=== PATIENT | female | born 1950 | race Asian ===

== ENCOUNTER → 2016-05-08 | Outpatient (CLI) | payer MEDICARE, OTHER ==
[~2016-05-08] MED LIST: ACAR50TA11 PO; ALBU8HFA IH; ALPR0.5T8 PO; AMIO200T44 PO; ASPI81TA2 PO; BUDE10.2 IH; CALC-26 PO; DICY10 PO; ESOM20CA31 PO; HYDR-3965 PO; LINA290C PO; METO50TA9 PO; PRAV20TA4 PO; SERT100T12 PO; SITA1TBM4 PO; TIOT185 IH
[2016-05-08 11:22] LABS: BASOPHILS % (AUTO) 0.3 % (0.0-2.0); HEMATOCRIT 44.6 % (36-46); HEMOGLOBIN 14.4 g/dL (12.0-16.0); LYMPHOCYTES # (AUTO) 1.8 K/uL (1.0-4.8); LYMPHOCYTES % (AUTO) 18.7 % (22.0-44.0); MEAN CORPUSCULAR HEMOGLOBIN 29.5 pg (26.0-34.0); MEAN CORPUSCULAR HGB CONC 32.2 G/dL (31.0-37.0); MEAN CORPUSCULAR VOLUME 91 fL (80-100); MONOCYTES # (AUTO) 0.7 K/uL (0.1-1.0); MONOCYTES % (AUTO) 7.7 % (2.0-9.0); NEUTROPHILS # (AUTO) 6.8 K/uL (1.8-7.7); NEUTROPHILS % (AUTO) 72.3 % (40.0-70.0); PLATELET COUNT (AUTO) 235 K/uL (150-450); RED BLOOD CELL COUNT(AUTO) 4.88 MIL/uL (4.00-5.20); RED CELL DISTRIBUTION WIDTH 13.8 % (11.5-14.5); WHITE BLOOD COUNT (AUTO) 9.4 K/uL (4.5-11.0)
[2016-05-08 11:52] LABS: ALANINE AMINOTRANSFERASE 28 U/L (12-78); ALBUMIN 4.2 g/dL (3.4-5.0); ANION GAP 8 mmol/L (8-16); ASPARTATE AMINOTRANSFERASE 21 U/L (15-37); BILIRUBIN,TOTAL 0.4 mg/dL (0.1-1.0); CALCIUM, TOTAL 9.8 mg/dL (8.8-10.5); CARBON DIOXIDE 29 mmol/L (22-29); CHLORIDE 100 mmol/L (98-107); CREATININE 0.64 mg/dL (0.60-1.30); GLOMERULAR FILTR. RATE CALC > 60 mL/min (>60); POTASSIUM 4.8 mmol/L (3.5-5.1); SODIUM SERUM 137 mmol/L (136-145); THYROID STIMULATING HORMONE 0.69 uIU/mL (0.36-3.74); TOTAL PROTEIN, SERUM 7.3 g/dL (6.4-8.2); UREA NITROGEN, BLOOD 9 mg/dL (7-18)
== END | disposition home or self-care (01) ==
LOC: LABPV 07:15
PROVIDERS: ATTEND Internal Medicine Cardiovascular Disease
DX: I11.0 Hypertensive heart disease with heart failure (principal); I50.9 Heart failure, unspecified; E11.8 Type 2 diabetes mellitus with unspecified complications; E55.9 Vitamin D deficiency, unspecified
CPT/HCPCS: 82306; 83036; 84439; 84443

== ENCOUNTER → 2016-07-18 | Outpatient (CLI) | payer MEDICARE, OTHER ==
[2016-07-18 10:28] LABS: BASOPHILS # (AUTO) 0.04 K/uL (0.00-0.20); BASOPHILS % (AUTO) 0.4 % (0.0-2.0); EOSINOPHILS % (AUTO) 0.96 % (1.0-6.0); HEMATOCRIT 43.5 % (36-46); HEMOGLOBIN 14.2 g/dL (12.0-16.0); LYMPHOCYTES # (AUTO) 1.8 K/uL (1.0-4.8); LYMPHOCYTES % (AUTO) 17.2 % (22.0-44.0); MEAN CORPUSCULAR HEMOGLOBIN 29.6 pg (26.0-34.0); MEAN CORPUSCULAR HGB CONC 32.5 G/dL (31.0-37.0); MEAN CORPUSCULAR VOLUME 91 fL (80-100); MONOCYTES # (AUTO) 0.7 K/uL (0.1-1.0); NEUTROPHILS # (AUTO) 7.8 K/uL (1.8-7.7); NEUTROPHILS % (AUTO) 74.5 % (40.0-70.0); PLATELET COUNT (AUTO) 257 K/uL (150-450); RED BLOOD CELL COUNT(AUTO) 4.78 MIL/uL (4.00-5.20); RED CELL DISTRIBUTION WIDTH 13.7 % (11.5-14.5); WHITE BLOOD COUNT (AUTO) 10.5 K/uL (4.5-11.0)
[2016-07-18 10:38] LABS: HEMOGLOBIN A1C 6.5 % (4.5-6.2)
[2016-07-18 10:54] LABS: ALANINE AMINOTRANSFERASE 22 U/L (12-78); ALBUMIN 3.9 g/dL (3.4-5.0); ANION GAP 7 mmol/L (8-16); ASPARTATE AMINOTRANSFERASE 14 U/L (15-37); BILIRUBIN,TOTAL 0.4 mg/dL (0.1-1.0); CALCIUM, TOTAL 9.8 mg/dL (8.8-10.5); CARBON DIOXIDE 31 mmol/L (22-29); CHLORIDE 99 mmol/L (98-107); CHOL/HDL RATIO 2.2 (3.9-5.7); CREATININE 0.64 mg/dL (0.60-1.30); GLOMERULAR FILTR. RATE CALC > 60 mL/min (>60); POTASSIUM 5.1 mmol/L (3.5-5.1); SODIUM SERUM 137 mmol/L (136-145); THYROID STIMULATING HORMONE 1.12 uIU/mL (0.36-3.74); TOTAL PROTEIN, SERUM 7.2 g/dL (6.4-8.2); UREA NITROGEN, BLOOD 13 mg/dL (7-18)
== END | disposition home or self-care (01) ==
LOC: LABPV 09:04
PROVIDERS: ATTEND Internal Medicine Cardiovascular Disease
DX: I11.0 Hypertensive heart disease with heart failure (principal); I50.9 Heart failure, unspecified; E11.8 Type 2 diabetes mellitus with unspecified complications; E55.9 Vitamin D deficiency, unspecified
CPT/HCPCS: 82306; 83036; 83735; 84443

== ENCOUNTER 2017-01-08 06:20 | Day surgery (SDC) | payer MEDICARE, OTHER ==
[~2017-01-08] VITALS: Ht 162.6 cm; Wt 50.0 kg
[~2017-01-08 06:20] MED LIST changes: -ALBU8HFA IH; -AMIO200T44 PO; +APIX2.5T PO; -ASPI81TA2 PO; -CALC-26 PO; +DICLOFENAC SODIUM 0.1% 2.5 ML OPHTHALMIC SOLUTION OS ONE; +ESCI10TA PO; -ESOM20CA31 PO; -HYDR-3965 PO; +LEVAHFA IH; +LEVO50 PO; +MOXIFLOXACIN HCL 0.5% 3 ML OPHTHALMIC SOLUTION OD ONE; +RABE20TA60 PO; +RINGERS SOLUTION,LACTATED 500 ML IV ONE; +ROFL500T PO; -SERT100T12 PO; -TIOT185 IH; +UMEC62.5 PO
[2017-01-08] MEDS ORDERED: MIDAZOLAM HCL 2 MG/2 ML VIAL IVP ONE (06:21)
[2017-01-08] MEDS ORDERED: LIDOCAINE HCL/PF 1% 2 ML VIAL IM ONE (06:21)
[2017-01-08] MEDS ORDERED: POVIDONE-IODINE 10% 15 ML SOLUTION UD TP ONE (06:21)
[2017-01-08] MEDS ORDERED: TETRACAINE HCL VISCOUS 0.5% 5 ML OPHTHALMIC SOLUTION OU ONE (06:21)
[2017-01-08] MEDS ORDERED: HYALURONATE SODIUM 12 MG/ML 0.8 ML SYRINGE IO ONE (06:21)
[2017-01-08] MEDS ORDERED: HYALURONATE SOD/CHONDROITIN SOD 0.5 ML VIAL IO ONE (06:21)
[2017-01-08] MEDS ORDERED: FentaNYL CITRATE-PF 100 MCG/2 ML VIAL IVP ONE (06:21)
[2017-01-08] MEDS ORDERED: DEXAMETHASONE SOD PHOS 4 MG/ML VIAL IVP ONE (06:21)
[2017-01-08] MEDS ORDERED: RINGERS SOLUTION,LACTATED 500 ML IV ONE (06:27)
[2017-01-08] MEDS ORDERED: DICLOFENAC SODIUM 0.1% 2.5 ML OPHTHALMIC SOLUTION ONE (06:28)
[2017-01-08] MEDS ORDERED: TROPICAMIDE 1% 2 ML OPHTHALMIC SOLUTION ONE (06:28)
[2017-01-08] MEDS ORDERED: MOXIFLOXACIN HCL 0.5% 3 ML OPHTHALMIC SOLUTION ONE (06:28)
[2017-01-08] MEDS ORDERED: PHENYLEPHRINE HCL 2.5% 2 ML OPHTHALMIC SOLUTION ONE (06:28)
[2017-01-08] MEDS ORDERED: DICLOFENAC SODIUM 0.1% 2.5 ML OPHTHALMIC SOLUTION OD ONE (06:30)
[2017-01-08] MEDS: TROPICAMIDE 1% 2 ML OPHTHALMIC SOLUTION OD SCH ×2 (07:08→07:13)
[2017-01-08] MEDS: PHENYLEPHRINE HCL 2.5% 2 ML OPHTHALMIC SOLUTION OD SCH ×2 (07:08→07:13)
[2017-01-08 07:12] LABS: GLUCOSE,POINT OF CARE 99 MG/DL (70-110)
== END 2017-01-08 09:20 | disposition home or self-care (01) ==
LOC: SURGERY 06:20
PROVIDERS: ATTEND Specialist
DX: E11.36 Type 2 diabetes mellitus with diabetic cataract (principal); H25.011 Cortical age-related cataract, right eye; I25.10 Atherosclerotic heart disease of native coronary artery without angina pectoris; J44.9 Chronic obstructive pulmonary disease, unspecified; M19.90 Unspecified osteoarthritis, unspecified site; F17.200 Nicotine dependence, unspecified, uncomplicated; F32.9 Major depressive disorder, single episode, unspecified; Z98.890 Other specified postprocedural states; Z79.899 Other long term (current) drug therapy; Z79.01 Long term (current) use of anticoagulants; Z95.1 Presence of aortocoronary bypass graft; Z98.42 Cataract extraction status, left eye
CPT/HCPCS: 82962; 93005; J1100; J2250; J3010; J3490; J7120

== ENCOUNTER → 2017-01-14 | Outpatient (CLI) | payer MEDICARE, OTHER ==
[~2017-01-14] MED LIST changes: -DICLOFENAC SODIUM 0.1% 2.5 ML OPHTHALMIC SOLUTION OS ONE; -MOXIFLOXACIN HCL 0.5% 3 ML OPHTHALMIC SOLUTION OD ONE; -RINGERS SOLUTION,LACTATED 500 ML IV ONE
[2017-01-14 11:58] LABS: BASOPHILS # (AUTO) 0.04 K/uL (0.00-0.20); BASOPHILS % (AUTO) 0.5 % (0.0-2.0); EOSINOPHILS # (AUTO) 0.08 K/uL (0.00-0.70); HEMATOCRIT 46.1 % (36-46); LYMPHOCYTES % (AUTO) 11.2 % (22.0-44.0); MEAN CORPUSCULAR HEMOGLOBIN 29.3 pg (26.0-34.0); MEAN CORPUSCULAR HGB CONC 32.5 G/dL (31.0-37.0); MEAN CORPUSCULAR VOLUME 90 fL (80-100); MONOCYTES # (AUTO) 0.5 K/uL (0.1-1.0); MONOCYTES % (AUTO) 5.1 % (2.0-9.0); NEUTROPHILS # (AUTO) 7.4 K/uL (1.8-7.7); NEUTROPHILS % (AUTO) 82.4 % (40.0-70.0); PLATELET COUNT (AUTO) 239 K/uL (150-450); RED BLOOD CELL COUNT(AUTO) 5.11 MIL/uL (4.00-5.20); RED CELL DISTRIBUTION WIDTH 14.1 % (11.5-14.5)
[2017-01-14 12:24] LABS: B-TYPE NATRIURETIC PEPTIDE 143 pg/mL (0-100); HEMOGLOBIN A1C 6.4 % (4.5-6.2)
[2017-01-14 12:33] LABS: ALANINE AMINOTRANSFERASE 25 U/L (12-78); ALBUMIN 4.1 g/dL (3.4-5.0); ALKALINE PHOSPHATASE 67 U/L (46-116); ANION GAP 7 mmol/L (8-16); ASPARTATE AMINOTRANSFERASE 19 U/L (15-37); BILIRUBIN,TOTAL 0.3 mg/dL (0.1-1.0); CALCIUM, TOTAL 9.7 mg/dL (8.8-10.5); CARBON DIOXIDE 32 mmol/L (22-29); CHLORIDE 97 mmol/L (98-107); CHOL/HDL RATIO 2.3 (3.9-5.7); CHOLESTEROL 180 mg/dL (131-200); CREATININE 0.67 mg/dL (0.60-1.30); FREE T4 (FREE THYROXINE) 1.24 ng/dL (0.76-1.46); GLOMERULAR FILTR. RATE CALC > 60 mL/min (>60); GLUCOSE,RANDOM 111 mg/dL (70-110); HDL CHOLESTEROL 79 mg/dL (40-60); LDL CHOL (CALC.) 94 mg/dL (0-130); POTASSIUM 4.2 mmol/L (3.5-5.1); SODIUM SERUM 136 mmol/L (136-145); THYROID STIMULATING HORMONE 1.39 uIU/mL (0.36-3.74); TOTAL PROTEIN, SERUM 7.3 g/dL (6.4-8.2); TRIGLYCERIDES 37 mg/dL (15-150); UREA NITROGEN, BLOOD 11 mg/dL (7-18)
== END | disposition home or self-care (01) ==
LOC: LABPV 10:39
PROVIDERS: ATTEND Internal Medicine Cardiovascular Disease
DX: I11.0 Hypertensive heart disease with heart failure (principal); I50.9 Heart failure, unspecified; E11.65 Type 2 diabetes mellitus with hyperglycemia; E55.9 Vitamin D deficiency, unspecified
CPT/HCPCS: 82306; 83036; 83735; 84439; 84443

== ENCOUNTER → 2017-02-11 | Outpatient (CLI) | payer MEDICARE, OTHER ==
[2017-02-11 09:46] LABS: BASOPHILS % (AUTO) 0.5 % (0.0-2.0); EOSINOPHILS % (AUTO) 1.8 % (1.0-6.0); HEMATOCRIT 47.4 % (36-46); LYMPHOCYTES # (AUTO) 1.5 K/uL (1.0-4.8); LYMPHOCYTES % (AUTO) 17.7 % (22.0-44.0); MEAN CORPUSCULAR HEMOGLOBIN 30.4 pg (26.0-34.0); MEAN CORPUSCULAR HGB CONC 33.9 G/dL (31.0-37.0); MEAN CORPUSCULAR VOLUME 90 fL (80-100); MONOCYTES # (AUTO) 0.5 K/uL (0.1-1.0); MONOCYTES % (AUTO) 6.7 % (2.0-9.0); NEUTROPHILS % (AUTO) 73.3 % (40.0-70.0); PLATELET COUNT (AUTO) 217 K/uL (150-450); RED BLOOD CELL COUNT(AUTO) 5.29 MIL/uL (4.00-5.20); RED CELL DISTRIBUTION WIDTH 14.5 % (11.5-14.5); WHITE BLOOD COUNT (AUTO) 8.2 K/uL (4.5-11.0)
[2017-02-11 10:12] LABS: ALANINE AMINOTRANSFERASE 24 U/L (12-78); ALBUMIN 4.3 g/dL (3.4-5.0); ANION GAP 5 mmol/L (8-16); ASPARTATE AMINOTRANSFERASE 18 U/L (15-37); BILIRUBIN,TOTAL 0.4 mg/dL (0.1-1.0); CALCIUM, TOTAL 10.1 mg/dL (8.8-10.5); CARBON DIOXIDE 32 mmol/L (22-29); CHLORIDE 97 mmol/L (98-107); CHOL/HDL RATIO 2.1 (3.9-5.7); CREATININE 0.74 mg/dL (0.60-1.30); GLOMERULAR FILTR. RATE CALC > 60 mL/min (>60); POTASSIUM 5.3 mmol/L (3.5-5.1); SODIUM SERUM 134 mmol/L (136-145); TOTAL PROTEIN, SERUM 7.8 g/dL (6.4-8.2); UREA NITROGEN, BLOOD 12 mg/dL (7-18)
== END | disposition home or self-care (01) ==
LOC: LABPV 08:00
PROVIDERS: ATTEND Internal Medicine Cardiovascular Disease
DX: I11.0 Hypertensive heart disease with heart failure (principal); I50.9 Heart failure, unspecified; E11.65 Type 2 diabetes mellitus with hyperglycemia; E55.9 Vitamin D deficiency, unspecified
CPT/HCPCS: 82306; 83036; 83735; 84439; 84443

== ENCOUNTER → 2017-05-08 | Outpatient (CLI) | payer MEDICARE, OTHER ==
[2017-05-08 10:32] LABS: BASOPHILS % (AUTO) 0.7 % (0.0-2.0); EOSINOPHILS % (AUTO) 0.7 % (1.0-6.0); HEMATOCRIT 44.2 % (36-46); HEMOGLOBIN 14.8 g/dL (12.0-16.0); LYMPHOCYTES # (AUTO) 1.3 K/uL (1.0-4.8); LYMPHOCYTES % (AUTO) 15.3 % (22.0-44.0); MEAN CORPUSCULAR HEMOGLOBIN 30.3 pg (26.0-34.0); MEAN CORPUSCULAR HGB CONC 33.5 G/dL (31.0-37.0); MEAN CORPUSCULAR VOLUME 90 fL (80-100); MONOCYTES # (AUTO) 0.6 K/uL (0.1-1.0); MONOCYTES % (AUTO) 7.6 % (2.0-9.0); NEUTROPHILS # (AUTO) 6.4 K/uL (1.8-7.7); NEUTROPHILS % (AUTO) 75.7 % (40.0-70.0); PLATELET COUNT (AUTO) 251 K/uL (150-450); RED BLOOD CELL COUNT(AUTO) 4.89 MIL/uL (4.00-5.20); RED CELL DISTRIBUTION WIDTH 14.1 % (11.5-14.5)
[2017-05-08 10:35] LABS: HEMOGLOBIN A1C 6.2 % (4.5-6.2)
[2017-05-08 10:57] LABS: ALANINE AMINOTRANSFERASE 25 U/L (12-78); ALBUMIN 3.8 g/dL (3.4-5.0); ALKALINE PHOSPHATASE 51 U/L (46-116); ANION GAP 7 mmol/L (8-16); ASPARTATE AMINOTRANSFERASE 25 U/L (15-37); BILIRUBIN,TOTAL 0.4 mg/dL (0.1-1.0); CALCIUM, TOTAL 9.6 mg/dL (8.8-10.5); CARBON DIOXIDE 32 mmol/L (22-29); CHLORIDE 97 mmol/L (98-107); CHOL/HDL RATIO 2.2 (3.9-5.7); CHOLESTEROL 171 mg/dL (131-200); CREATININE 0.56 mg/dL (0.60-1.30); FREE T4 (FREE THYROXINE) 1.05 ng/dL (0.76-1.46); GLOMERULAR FILTR. RATE CALC > 60 mL/min (>60); GLUCOSE,RANDOM 94 mg/dL (70-110); HDL CHOLESTEROL 77 mg/dL (40-60); LDL CHOL (CALC.) 84 mg/dL (0-130); SODIUM SERUM 136 mmol/L (136-145); THYROID STIMULATING HORMONE 3.47 uIU/mL (0.36-3.74); TOTAL PROTEIN, SERUM 7.1 g/dL (6.4-8.2); TRIGLYCERIDES 51 mg/dL (15-150); UREA NITROGEN, BLOOD 13 mg/dL (7-18)
[2017-05-08 11:26] LABS: B-TYPE NATRIURETIC PEPTIDE 62 pg/mL (0-100)
== END | disposition home or self-care (01) ==
LOC: LABPV 07:47
PROVIDERS: ATTEND Internal Medicine Cardiovascular Disease
DX: I11.0 Hypertensive heart disease with heart failure (principal); I50.9 Heart failure, unspecified; E11.8 Type 2 diabetes mellitus with unspecified complications; E55.9 Vitamin D deficiency, unspecified; D56.5 Hemoglobin E-beta thalassemia
CPT/HCPCS: 82306; 83036; 83735; 84439; 84443

== ENCOUNTER → 2017-09-22 | Outpatient (CLI) | payer MEDICARE, OTHER ==
[2017-09-22 10:29] LABS: BASOPHILS % (AUTO) 0.9 % (0.0-2.0); EOSINOPHILS % (AUTO) 1.8 % (1.0-6.0); HEMATOCRIT 45.2 % (36-46); HEMOGLOBIN 15.5 g/dL (12.0-16.0); LYMPHOCYTES # (AUTO) 1.6 K/uL (1.0-4.8); LYMPHOCYTES % (AUTO) 21.8 % (22.0-44.0); MEAN CORPUSCULAR HEMOGLOBIN 30.3 pg (26.0-34.0); MEAN CORPUSCULAR HGB CONC 34.3 G/dL (31.0-37.0); MEAN CORPUSCULAR VOLUME 89 fL (80-100); MONOCYTES # (AUTO) 0.6 K/uL (0.1-1.0); NEUTROPHILS # (AUTO) 4.8 K/uL (1.8-7.7); NEUTROPHILS % (AUTO) 66.5 % (40.0-70.0); PLATELET COUNT (AUTO) 206 K/uL (150-450); RED BLOOD CELL COUNT(AUTO) 5.11 MIL/uL (4.00-5.20); RED CELL DISTRIBUTION WIDTH 13.8 % (11.5-14.5)
[2017-09-22 10:44] LABS: HEMOGLOBIN A1C 6.2 % (4.5-6.2)
[2017-09-22 10:48] LABS: B-TYPE NATRIURETIC PEPTIDE 196 pg/mL (0-100)
[2017-09-22 11:53] LABS: ALANINE AMINOTRANSFERASE 29 U/L (12-78); ALKALINE PHOSPHATASE 59 U/L (46-116); ANION GAP 6 mmol/L (8-16); ASPARTATE AMINOTRANSFERASE 24 U/L (15-37); BILIRUBIN,TOTAL 0.5 mg/dL (0.1-1.0); CALCIUM, TOTAL 9.2 mg/dL (8.8-10.5); CARBON DIOXIDE 31 mmol/L (22-29); CHLORIDE 94 mmol/L (98-107); CHOL/HDL RATIO 2.3 (3.9-5.7); CHOLESTEROL 170 mg/dL (131-200); FREE T4 (FREE THYROXINE) 0.96 ng/dL (0.76-1.46); GLOMERULAR FILTR. RATE CALC > 60 mL/min (>60); GLUCOSE,RANDOM 111 mg/dL (70-110); HDL CHOLESTEROL 73 mg/dL (40-60); LDL CHOL (CALC.) 87 mg/dL (0-130); POTASSIUM 4.5 mmol/L (3.5-5.1); SODIUM SERUM 131 mmol/L (136-145); THYROID STIMULATING HORMONE 3.35 uIU/mL (0.36-3.74); TOTAL PROTEIN, SERUM 7.3 g/dL (6.4-8.2); TRIGLYCERIDES 49 mg/dL (15-150); UREA NITROGEN, BLOOD 11 mg/dL (7-18)
== END | disposition home or self-care (01) ==
LOC: LABPV 08:39
PROVIDERS: ATTEND Internal Medicine Cardiovascular Disease
DX: I11.0 Hypertensive heart disease with heart failure (principal); I50.9 Heart failure, unspecified; E11.8 Type 2 diabetes mellitus with unspecified complications; E55.9 Vitamin D deficiency, unspecified; D56.5 Hemoglobin E-beta thalassemia; E78.00 Pure hypercholesterolemia, unspecified; F41.9 Anxiety disorder, unspecified; I48.91 Unspecified atrial fibrillation; F32.9 Major depressive disorder, single episode, unspecified; J44.9 Chronic obstructive pulmonary disease, unspecified; K21.9 Gastro-esophageal reflux disease without esophagitis; E66.09 Other obesity due to excess calories
CPT/HCPCS: 82306; 83036; 83735; 84439; 84443

== ENCOUNTER → 2018-01-08 | Outpatient (CLI) | payer MEDICARE, OTHER ==
[~2018-01-08] MED LIST changes: +BACTDSB PO; -LEVO50 PO
[2018-01-08 10:58] LABS: BASOPHILS % (AUTO) 0.7 % (0.0-2.0); EOSINOPHILS % (AUTO) 1.3 % (1.0-6.0); HEMATOCRIT 44.3 % (36-46); LYMPHOCYTES # (AUTO) 1.5 K/uL (1.0-4.8); LYMPHOCYTES % (AUTO) 19.7 % (22.0-44.0); MEAN CORPUSCULAR HEMOGLOBIN 30.4 pg (26.0-34.0); MEAN CORPUSCULAR HGB CONC 33.8 G/dL (31.0-37.0); MEAN CORPUSCULAR VOLUME 90 fL (80-100); MONOCYTES # (AUTO) 0.8 K/uL (0.1-1.0); MONOCYTES % (AUTO) 10.3 % (2.0-9.0); NEUTROPHILS # (AUTO) 5.2 K/uL (1.8-7.7); PLATELET COUNT (AUTO) 210 K/uL (150-450); RED BLOOD CELL COUNT(AUTO) 4.93 MIL/uL (4.00-5.20); RED CELL DISTRIBUTION WIDTH 15.1 % (11.5-14.5)
[2018-01-08 11:18] LABS: ALANINE AMINOTRANSFERASE 26 U/L (12-78); ALBUMIN 3.5 g/dL (3.4-5.0); ALKALINE PHOSPHATASE 65 U/L (46-116); ANION GAP 0 mmol/L (8-16); ASPARTATE AMINOTRANSFERASE 17 U/L (15-37); BILIRUBIN,TOTAL 0.3 mg/dL (0.1-1.0); CALCIUM, TOTAL 9.1 mg/dL (8.8-10.5); CARBON DIOXIDE 37 mmol/L (22-29); CHLORIDE 96 mmol/L (98-107); CHOLESTEROL 159 mg/dL (131-200); CREATININE 0.65 mg/dL (0.60-1.30); FREE T4 (FREE THYROXINE) 1.07 ng/dL (0.76-1.46); GLOMERULAR FILTR. RATE CALC > 60 mL/min (>60); GLUCOSE,RANDOM 102 mg/dL (70-110); HDL CHOLESTEROL 78 mg/dL (40-60); LDL CHOL (CALC.) 73 mg/dL (0-130); POTASSIUM 3.7 mmol/L (3.5-5.1); SODIUM SERUM 133 mmol/L (136-145); THYROID STIMULATING HORMONE 4.21 uIU/mL (0.36-3.74); TOTAL PROTEIN, SERUM 6.5 g/dL (6.4-8.2); TRIGLYCERIDES 39 mg/dL (15-150); UREA NITROGEN, BLOOD 15 mg/dL (7-18)
[2018-01-08 11:26] LABS: B-TYPE NATRIURETIC PEPTIDE 101 pg/mL (0-100)
== END | disposition home or self-care (01) ==
LOC: LABPV 09:00
PROVIDERS: ATTEND Internal Medicine Cardiovascular Disease
DX: I11.0 Hypertensive heart disease with heart failure (principal); I50.9 Heart failure, unspecified; E11.8 Type 2 diabetes mellitus with unspecified complications; E55.9 Vitamin D deficiency, unspecified; D56.5 Hemoglobin E-beta thalassemia
CPT/HCPCS: 82306; 83036; 83735; 84439; 84443

== ENCOUNTER → 2018-05-01 | Outpatient (CLI) | payer MEDICARE, OTHER ==
[2018-05-01 12:04] LABS: BASOPHILS % (AUTO) 0.9 % (0.0-2.0); EOSINOPHILS % (AUTO) 0.7 % (1.0-6.0); HEMATOCRIT 43.2 % (36-46); HEMOGLOBIN 14.3 g/dL (12.0-16.0); LYMPHOCYTES % (AUTO) 13.4 % (22.0-44.0); MEAN CORPUSCULAR HEMOGLOBIN 28.7 pg (26.0-34.0); MEAN CORPUSCULAR HGB CONC 33.1 G/dL (31.0-37.0); MEAN CORPUSCULAR VOLUME 87 fL (80-100); MONOCYTES # (AUTO) 0.5 K/uL (0.1-1.0); MONOCYTES % (AUTO) 7.2 % (2.0-9.0); NEUTROPHILS # (AUTO) 5.7 K/uL (1.8-7.7); NEUTROPHILS % (AUTO) 77.8 % (40.0-70.0); PLATELET COUNT (AUTO) 215 K/uL (150-450); RED CELL DISTRIBUTION WIDTH 14.2 % (11.5-14.5)
[2018-05-01 12:27] LABS: B-TYPE NATRIURETIC PEPTIDE 337 pg/mL (0-100)
[2018-05-01 12:32] LABS: ALANINE AMINOTRANSFERASE 44 U/L (12-78); ALKALINE PHOSPHATASE 65 U/L (46-116); ANION GAP 5 mmol/L (8-16); ASPARTATE AMINOTRANSFERASE 36 U/L (15-37); BILIRUBIN,TOTAL 0.6 mg/dL (0.1-1.0); CALCIUM, TOTAL 9.9 mg/dL (8.8-10.5); CARBON DIOXIDE 32 mmol/L (22-29); CHLORIDE 99 mmol/L (98-107); CHOLESTEROL 159 mg/dL (131-200); FREE T4 (FREE THYROXINE) 1.21 ng/dL (0.76-1.46); GLOMERULAR FILTR. RATE CALC > 60 mL/min (>60); GLUCOSE,RANDOM 120 mg/dL (70-110); HDL CHOLESTEROL 81 mg/dL (40-60); LDL CHOL (CALC.) 70 mg/dL (0-130); POTASSIUM 4.7 mmol/L (3.5-5.1); SODIUM SERUM 136 mmol/L (136-145); THYROID STIMULATING HORMONE 3.69 uIU/mL (0.36-3.74); TOTAL PROTEIN, SERUM 7.4 g/dL (6.4-8.2); TRIGLYCERIDES 38 mg/dL (15-150); UREA NITROGEN, BLOOD 14 mg/dL (7-18)
[2018-05-01 12:40] LABS: HEMOGLOBIN A1C 6.1 % (4.5-6.2)
== END | disposition home or self-care (01) ==
LOC: LABPV 08:33
PROVIDERS: ATTEND Internal Medicine Cardiovascular Disease
DX: E55.9 Vitamin D deficiency, unspecified (principal); I11.0 Hypertensive heart disease with heart failure; I50.9 Heart failure, unspecified; E11.9 Type 2 diabetes mellitus without complications; D56.5 Hemoglobin E-beta thalassemia
CPT/HCPCS: 82306; 83036; 83735; 84439; 84443

== ENCOUNTER 2018-05-26 09:48 | Inpatient (IN) | payer MEDICARE, OTHER ==
[~2018-05-26] VITALS: Ht 162.6 cm; Wt 53.2 kg
[2018-05-26] MEDS ORDERED: ESOM20CA31 PO (09:56)
[2018-05-26 10:04] LABS: GLUCOSE,POINT OF CARE 193 MG/DL (70-110)
[2018-05-26] MEDS ORDERED: IPRATROPIUM BROMIDE 0.5 MG/2.5 ML NEB SOLUTION NEB ONE (10:45)
[2018-05-26] MEDS ORDERED: ALBUTEROL SULFATE 2.5 MG/0.5 ML NEB SOLUTION NEB ONE (10:45)
[2018-05-26 10:53] LABS: BASOPHILS % (AUTO) 0.1 % (0.0-2.0); EOSINOPHILS % (AUTO) 0 % (1.0-6.0); HEMOGLOBIN 12.2 g/dL (12.0-16.0); LYMPHOCYTES # (AUTO) 0.4 K/uL (1.0-4.8); LYMPHOCYTES % (AUTO) 3.1 % (22.0-44.0); MEAN CORPUSCULAR HEMOGLOBIN 27.1 pg (26.0-34.0); MEAN CORPUSCULAR HGB CONC 32.1 G/dL (31.0-37.0); MEAN CORPUSCULAR VOLUME 85 fL (80-100); MONOCYTES # (AUTO) 1.2 K/uL (0.1-1.0); MONOCYTES % (AUTO) 8.8 % (2.0-9.0); NEUTROPHILS # (AUTO) 11.9 K/uL (1.8-7.7); PLATELET COUNT (AUTO) 195 K/uL (150-450); RED BLOOD CELL COUNT(AUTO) 4.49 MIL/uL (4.00-5.20); RED CELL DISTRIBUTION WIDTH 14.9 % (11.5-14.5)
[2018-05-26 11:04] LABS: ANION GAP 6 mmol/L (8-16); CALCIUM, TOTAL 9.1 mg/dL (8.8-10.5); CARBON DIOXIDE 30 mmol/L (22-29); CHLORIDE 95 mmol/L (98-107); GLOMERULAR FILTR. RATE CALC > 60 mL/min (>60); GLUCOSE,RANDOM 146 mg/dL (70-110); INR 1.2 (0.9-1.1); POTASSIUM 4.5 mmol/L (3.5-5.1); PROTHROMBIN TIME 12.2 SEC (9.4-11.6); SODIUM SERUM 131 mmol/L (136-145); UREA NITROGEN, BLOOD 19 mg/dL (7-18)
[2018-05-26 11:13] LABS: B-TYPE NATRIURETIC PEPTIDE 747 pg/mL (0-100)
[2018-05-26 11:28] LABS: ALANINE AMINOTRANSFERASE 34 U/L (12-78); ALKALINE PHOSPHATASE 74 U/L (46-116); ASPARTATE AMINOTRANSFERASE 22 U/L (15-37); BILIRUBIN,TOTAL 0.9 mg/dL (0.1-1.0); CREATINE KINASE, TOTAL ONLY 83 U/L (26-192); TOTAL PROTEIN, SERUM 6.3 g/dL (6.4-8.2)
[2018-05-26] MEDS ORDERED: FUROSEMIDE 40 MG/4 ML VIAL IVP ONE (11:30)
[2018-05-26] MEDS ORDERED: MethylPREDNISolone SOD SUCC 125 MG/2 ML VIAL IVP ONE (11:30)
[2018-05-26 12:01] LABS: APPEARANCE,URINE CLEAR (CLEAR); BILIRUBIN,URINE NEGATIVE (NEGATIVE); GLUCOSE, URINE (UA) NEGATIVE (NEGATIVE); KETONES,URINE NEGATIVE (NEGATIVE); LEUKOCYTE ESTERASE ,URINE NEGATIVE (NEGATIVE); NITRATE,URINE NEGATIVE (NEGATIVE); OCCULT BLOOD,URINE NEGATIVE (NEGATIVE); PROTEIN,URINE SEE CONFIRM (NEGATIVE)
[2018-05-26 12:18] LABS: SULFOSALICYLIC ACID,URINE 1+ (Negative)
[2018-05-26 12:19] LABS: BACTERIA,URINE None Seen /HPF (None Seen); RBC,URINE None Seen /HPF (0-2); SQUAMOUS EPITHELIAL CELL,UR Moderate /LPF (None Seen); WBC,URINE None Seen /HPF (0-5)
[2018-05-26] MEDS ORDERED: ACETAMINOPHEN 325 MG TABLET PO PRN ×2 (12:30→18:45)
[2018-05-26] MEDS ORDERED: ONDANSETRON HCL 4 MG/2 ML VIAL IVP PRN ×2 (12:30→18:45)
[2018-05-26] MEDS ORDERED: IOVERSOL 350 MG/ML 100 ML VIAL ONE (13:39)
[2018-05-26] MEDS ORDERED: SODIUM CHLORIDE 0.9% 100 ML ONE ×2 (13:39→16:01)
[2018-05-26] MEDS ORDERED: ALBUTEROL SULFATE 2.5 MG/0.5 ML NEB SOLUTION NEB SCH (15:00)
[2018-05-26] MEDS: ALBUTEROL SULFATE 2.5 MG/0.5 ML NEB SOLUTION NEB SCH ×3 (15:00→22:55)
[2018-05-26] MEDS ORDERED: IPRATROPIUM BROMIDE 0.5 MG/2.5 ML NEB SOLUTION NEB SCH (15:00)
[2018-05-26] MEDS: IPRATROPIUM BROMIDE 0.5 MG/2.5 ML NEB SOLUTION NEB SCH ×3 (15:00→22:55)
[2018-05-26 15:14] VITALS: BP 130/79
[2018-05-26] MEDS: CefTRIAXone SODIUM 2 GM in DEXTROSE 5%-WATER 50 ML IV SCH (16:08)
[2018-05-26] MEDS: AZITHROMYCIN 250 MG TABLET PO SCH (16:09)
[2018-05-26] MEDS ORDERED: PNEUMOCOCCAL VACCINE POLYVALENT 0.5 ML VIAL [PPSV23] IM ONE (17:15)
[2018-05-26] MEDS: MethylPREDNISolone SOD SUCC 125 MG/2 ML VIAL IVP SCH ×2 (17:19→23:59)
[2018-05-26] MEDS ORDERED: DICYCLOMINE HCL 10 MG CAPSULE PO PRN (18:45)
[2018-05-26] MEDS ORDERED: HYDROCODONE/ACETAMINOPHEN 5-325 MG TABLET PO PRN (18:45)
[2018-05-26] MEDS ORDERED: ALBUTEROL SULFATE 2.5 MG/0.5 ML NEB SOLUTION NEB PRN (18:45)
[2018-05-26] MEDS ORDERED: MethylPREDNISolone SOD SUCC 125 MG/2 ML VIAL IVP SCH (18:45)
[2018-05-26] MEDS ORDERED: ALPRAZolam 0.5 MG TABLET PO PRN (18:45)
[2018-05-26] MEDS ORDERED: IPRATROPIUM BROMIDE 0.5 MG/2.5 ML NEB SOLUTION NEB PRN (18:45)
[2018-05-26] MEDS ORDERED: 0.9% SODIUM CHLORIDE 10 ML SYRINGE IVP PRN ×2 (18:45)
[2018-05-26] MEDS ORDERED: SITA1TAB6 PO (18:50)
[2018-05-26 20:14] VITALS: BP 145/83
[2018-05-26] MEDS: DOCUSATE SODIUM 250 MG CAPSULE PO SCH (20:32)
[2018-05-26] MEDS: METOPROLOL SUCCINATE 50 MG ER TABLET PO SCH (20:32)
[2018-05-26] MEDS: ESCITALOPRAM OXALATE 10 MG TABLET PO SCH (20:32)
[2018-05-26] MEDS: ATORVASTATIN CALCIUM 20 MG TABLET PO SCH (20:36)
[2018-05-26] MEDS: APIXABAN 2.5 MG TABLET PO SCH (20:36)
[2018-05-26] MEDS: INSULIN REGULAR, HUMAN 100 UNITS/ML SQ PRN (22:02)
[2018-05-26 23:06] LABS: GLUCOMETER DEV NAME(LOC) 5S.1; GLUCOSE,POINT OF CARE 228 MG/DL (70-110)
[2018-05-27] VITALS (7 sets, daily range): BP systolic 116–158; BP diastolic 64–91
[2018-05-27] MEDS: MethylPREDNISolone SOD SUCC 125 MG/2 ML VIAL IVP SCH ×4 (05:50→23:41)
[2018-05-27] MEDS: PANTOPRAZOLE SODIUM 40 MG DR TABLET PO SCH (05:50)
[2018-05-27] MEDS: INSULIN REGULAR, HUMAN 100 UNITS/ML SQ PRN ×4 (06:13→21:16)
[2018-05-27 06:39] LABS: GLUCOMETER DEV NAME(LOC) 5N.1; GLUCOSE,POINT OF CARE 164 MG/DL (70-110)
[2018-05-27] MEDS: ALBUTEROL SULFATE 2.5 MG/0.5 ML NEB SOLUTION NEB SCH ×5 (07:37→23:07)
[2018-05-27] MEDS: IPRATROPIUM BROMIDE 0.5 MG/2.5 ML NEB SOLUTION NEB SCH ×5 (07:37→23:07)
[2018-05-27] MEDS: ACARBOSE 50 MG TABLET PO SCH ×3 (08:03→17:55)
[2018-05-27] MEDS: APIXABAN 2.5 MG TABLET PO SCH ×2 (08:04→20:37)
[2018-05-27] MEDS: DOCUSATE SODIUM 250 MG CAPSULE PO SCH ×3 (08:04→20:37)
[2018-05-27] MEDS: AZITHROMYCIN 250 MG TABLET PO SCH (08:04)
[2018-05-27] MEDS: METOPROLOL SUCCINATE 50 MG ER TABLET PO SCH (08:04)
[2018-05-27 13:09] LABS: GLUCOMETER DEV NAME(LOC) 5N.1; GLUCOSE,POINT OF CARE 173 MG/DL (70-110)
[2018-05-27] MEDS: CefTRIAXone SODIUM 2 GM in DEXTROSE 5%-WATER 50 ML IV SCH (15:39)
[2018-05-27 19:59] LABS: GLUCOMETER DEV NAME(LOC) 5N.1; GLUCOSE,POINT OF CARE 274 MG/DL (70-110)
[2018-05-27 20:29] LABS: PROTHROMBIN TIME 10.9 SEC (9.4-11.6)
[2018-05-27 20:33] LABS: HEMOGLOBIN A1C 6.5 % (4.5-6.2)
[2018-05-27] MEDS: ESCITALOPRAM OXALATE 10 MG TABLET PO SCH (20:37)
[2018-05-27] MEDS: ATORVASTATIN CALCIUM 20 MG TABLET PO SCH (20:37)
[2018-05-27 20:44] LABS: CHOL/HDL RATIO 2.7 (3.9-5.7); THYROID STIMULATING HORMONE 1.14 uIU/mL (0.36-3.74)
[2018-05-27 21:12] LABS: BASOPHILS % (AUTO) 0.1 % (0.0-2.0); EOSINOPHILS % (AUTO) 0 % (1.0-6.0); HEMATOCRIT 36.4 % (36-46); HEMOGLOBIN 11.9 g/dL (12.0-16.0); LYMPHOCYTES # (AUTO) 0.3 K/uL (1.0-4.8); LYMPHOCYTES % (AUTO) 2.4 % (22.0-44.0); MEAN CORPUSCULAR HEMOGLOBIN 27.5 pg (26.0-34.0); MEAN CORPUSCULAR HGB CONC 32.7 G/dL (31.0-37.0); MEAN CORPUSCULAR VOLUME 84 fL (80-100); MONOCYTES # (AUTO) 0.6 K/uL (0.1-1.0); MONOCYTES % (AUTO) 5.2 % (2.0-9.0); NEUTROPHILS # (AUTO) 10.5 K/uL (1.8-7.7); PLATELET COUNT (AUTO) 346 K/uL (150-450); RED BLOOD CELL COUNT(AUTO) 4.33 MIL/uL (4.00-5.20); RED CELL DISTRIBUTION WIDTH 15.1 % (11.5-14.5)
[2018-05-27 21:15] LABS: NEUTROPHILS % (AUTO) 92.3 % (40.0-70.0)
[2018-05-27 21:27] LABS: PLATELET MORPHOLOGY COMMENT GIANT PLTS PRESENT
[2018-05-28 04:40] VITALS: BP 144/80
[2018-05-28] MEDS: MethylPREDNISolone SOD SUCC 125 MG/2 ML VIAL IVP SCH ×2 (05:12→11:42)
[2018-05-28] MEDS: PANTOPRAZOLE SODIUM 40 MG DR TABLET PO SCH (05:13)
[2018-05-28 06:06] LABS: BASOPHILS % (AUTO) 0.1 % (0.0-2.0); EOSINOPHILS % (AUTO) 0 % (1.0-6.0); HEMOGLOBIN 11.7 g/dL (12.0-16.0); LYMPHOCYTES # (AUTO) 0.3 K/uL (1.0-4.8); LYMPHOCYTES % (AUTO) 2.2 % (22.0-44.0); MEAN CORPUSCULAR HGB CONC 32.4 G/dL (31.0-37.0); MEAN CORPUSCULAR VOLUME 83 fL (80-100); MONOCYTES # (AUTO) 0.4 K/uL (0.1-1.0); MONOCYTES % (AUTO) 3.2 % (2.0-9.0); NEUTROPHILS # (AUTO) 11.6 K/uL (1.8-7.7); PLATELET COUNT (AUTO) 209 K/uL (150-450); RED BLOOD CELL COUNT(AUTO) 4.33 MIL/uL (4.00-5.20); RED CELL DISTRIBUTION WIDTH 14.6 % (11.5-14.5)
[2018-05-28] MEDS: INSULIN REGULAR, HUMAN 100 UNITS/ML SQ PRN ×4 (06:09→21:17)
[2018-05-28 06:29] LABS: NEUTROPHILS % (AUTO) 94.5 % (40.0-70.0)
[2018-05-28 06:57] LABS: B-TYPE NATRIURETIC PEPTIDE 167 pg/mL (0-100)
[2018-05-28 07:05] LABS: ALANINE AMINOTRANSFERASE 30 U/L (12-78); ALBUMIN 2.6 g/dL (3.4-5.0); ALKALINE PHOSPHATASE 73 U/L (46-116); ANION GAP 4 mmol/L (8-16); ASPARTATE AMINOTRANSFERASE 15 U/L (15-37); BILIRUBIN,TOTAL 0.4 mg/dL (0.1-1.0); CALCIUM, TOTAL 9.2 mg/dL (8.8-10.5); CARBON DIOXIDE 32 mmol/L (22-29); CHLORIDE 96 mmol/L (98-107); CREATININE 0.52 mg/dL (0.60-1.30); GLOMERULAR FILTR. RATE CALC > 60 mL/min (>60); GLUCOSE,RANDOM 167 mg/dL (70-110); SODIUM SERUM 132 mmol/L (136-145); TOTAL PROTEIN, SERUM 5.3 g/dL (6.4-8.2); UREA NITROGEN, BLOOD 20 mg/dL (7-18)
[2018-05-28 07:21] VITALS: BP 138/72
[2018-05-28] MEDS: IPRATROPIUM BROMIDE 0.5 MG/2.5 ML NEB SOLUTION NEB SCH ×5 (07:53→23:18)
[2018-05-28] MEDS: ALBUTEROL SULFATE 2.5 MG/0.5 ML NEB SOLUTION NEB SCH ×5 (07:54→23:18)
[2018-05-28] MEDS: METOPROLOL SUCCINATE 50 MG ER TABLET PO SCH (08:15)
[2018-05-28] MEDS: ACARBOSE 50 MG TABLET PO SCH ×3 (08:15→17:38)
[2018-05-28] MEDS: DOCUSATE SODIUM 250 MG CAPSULE PO SCH ×3 (08:15→20:39)
[2018-05-28] MEDS: APIXABAN 2.5 MG TABLET PO SCH ×2 (08:15→20:40)
[2018-05-28] MEDS: AZITHROMYCIN 250 MG TABLET PO SCH (08:15)
[2018-05-28] MEDS: NICOTINE 14 MG/24 HOUR PATCH TD SCH (08:16)
[2018-05-28 10:48] VITALS: BP 155/86
[2018-05-28] MEDS ORDERED: SODIUM CHLORIDE 0.9% 50 ML ONE (15:16)
[2018-05-28] MEDS: CefTRIAXone SODIUM 2 GM in DEXTROSE 5%-WATER 50 ML IV SCH (15:31)
[2018-05-28 15:45] VITALS: BP 158/80
[2018-05-28] MEDS: MetFORMIN HCL 500 MG TABLET PO SCH (17:37)
[2018-05-28] MEDS: MethylPREDNISolone SOD SUCC 40 MG/ML VIAL IVP SCH ×2 (17:37→23:12)
[2018-05-28] MEDS: SitaGLIPtin PHOSPHATE 50 MG TABLET PO SCH (17:38)
[2018-05-28 20:00] VITALS: BP 139/79
[2018-05-28] MEDS: ESCITALOPRAM OXALATE 10 MG TABLET PO SCH (20:40)
[2018-05-28] MEDS: ATORVASTATIN CALCIUM 20 MG TABLET PO SCH (20:40)
[2018-05-29] VITALS (7 sets, daily range): BP systolic 123–165; BP diastolic 60–112
[2018-05-29] MEDS: PANTOPRAZOLE SODIUM 40 MG DR TABLET PO SCH (05:32)
[2018-05-29] MEDS: MethylPREDNISolone SOD SUCC 40 MG/ML VIAL IVP SCH ×3 (05:32→17:35)
[2018-05-29] MEDS: INSULIN REGULAR, HUMAN 100 UNITS/ML SQ PRN ×3 (06:09→21:08)
[2018-05-29 06:15] LABS: GLUCOMETER DEV NAME(LOC) 5S.1; GLUCOSE,POINT OF CARE 207 MG/DL (70-110)
[2018-05-29 06:15] LABS: GLUCOMETER DEV NAME(LOC) 5S.1; GLUCOSE,POINT OF CARE 231 MG/DL (70-110)
[2018-05-29 06:15] LABS: GLUCOMETER DEV NAME(LOC) 5S.1; GLUCOSE,POINT OF CARE 192 MG/DL (70-110)
[2018-05-29 06:15] LABS: GLUCOMETER DEV NAME(LOC) 5S.1; GLUCOSE,POINT OF CARE 193 MG/DL (70-110)
[2018-05-29 06:15] LABS: GLUCOMETER DEV NAME(LOC) 5S.1; GLUCOSE,POINT OF CARE 173 MG/DL (70-110)
[2018-05-29 06:18] LABS: EOSINOPHILS % (AUTO) 0 % (1.0-6.0); HEMATOCRIT 37.8 % (36-46); HEMOGLOBIN 12.3 g/dL (12.0-16.0); LYMPHOCYTES # (AUTO) 0.3 K/uL (1.0-4.8); LYMPHOCYTES % (AUTO) 3.1 % (22.0-44.0); MEAN CORPUSCULAR HGB CONC 32.5 G/dL (31.0-37.0); MEAN CORPUSCULAR VOLUME 83 fL (80-100); MONOCYTES # (AUTO) 0.6 K/uL (0.1-1.0); NEUTROPHILS # (AUTO) 9.4 K/uL (1.8-7.7); NEUTROPHILS % (AUTO) 90.9 % (40.0-70.0); PLATELET COUNT (AUTO) 215 K/uL (150-450); RED BLOOD CELL COUNT(AUTO) 4.56 MIL/uL (4.00-5.20); RED CELL DISTRIBUTION WIDTH 15.2 % (11.5-14.5)
[2018-05-29 07:23] LABS: ALANINE AMINOTRANSFERASE 29 U/L (12-78); ALBUMIN 2.9 g/dL (3.4-5.0); ALKALINE PHOSPHATASE 68 U/L (46-116); ANION GAP 5 mmol/L (8-16); ASPARTATE AMINOTRANSFERASE 16 U/L (15-37); BILIRUBIN,TOTAL 0.3 mg/dL (0.1-1.0); CALCIUM, TOTAL 9.4 mg/dL (8.8-10.5); CARBON DIOXIDE 33 mmol/L (22-29); CHLORIDE 96 mmol/L (98-107); CREATININE 0.54 mg/dL (0.60-1.30); GLOMERULAR FILTR. RATE CALC > 60 mL/min (>60); GLUCOSE,RANDOM 133 mg/dL (70-110); POTASSIUM 4.2 mmol/L (3.5-5.1); SODIUM SERUM 134 mmol/L (136-145); TOTAL PROTEIN, SERUM 5.8 g/dL (6.4-8.2); UREA NITROGEN, BLOOD 18 mg/dL (7-18)
[2018-05-29] MEDS: IPRATROPIUM BROMIDE 0.5 MG/2.5 ML NEB SOLUTION NEB SCH ×5 (07:36→23:12)
[2018-05-29] MEDS: ALBUTEROL SULFATE 2.5 MG/0.5 ML NEB SOLUTION NEB SCH ×5 (07:36→23:12)
[2018-05-29] MEDS: SitaGLIPtin PHOSPHATE 50 MG TABLET PO SCH ×2 (08:23→17:35)
[2018-05-29] MEDS: MetFORMIN HCL 500 MG TABLET PO SCH ×2 (08:23→17:35)
[2018-05-29] MEDS: NICOTINE 14 MG/24 HOUR PATCH TD SCH (08:23)
[2018-05-29] MEDS: DOCUSATE SODIUM 250 MG CAPSULE PO SCH ×3 (08:24→21:00)
[2018-05-29] MEDS: ACARBOSE 50 MG TABLET PO SCH ×3 (08:24→17:35)
[2018-05-29] MEDS: METOPROLOL SUCCINATE 50 MG ER TABLET PO SCH (08:24)
[2018-05-29] MEDS: APIXABAN 2.5 MG TABLET PO SCH (08:24)
[2018-05-29] MEDS: AZITHROMYCIN 250 MG TABLET PO SCH (08:24)
[2018-05-29 11:00] LABS: GLUCOMETER DEV NAME(LOC) 5N.1; GLUCOSE,POINT OF CARE 156 MG/DL (70-110)
[2018-05-29 12:14] LABS: GLUCOMETER DEV NAME(LOC) 5N.1; GLUCOSE,POINT OF CARE 115 MG/DL (70-110)
[2018-05-29] MEDS ORDERED: AmLODIPine BESYLATE 5 MG TABLET PO SCH (13:45)
[2018-05-29] MEDS: AmLODIPine BESYLATE 5 MG TABLET PO SCH (14:36)
[2018-05-29] MEDS ORDERED: SODIUM CHLORIDE 0.9% 100 ML ONE (16:46)
[2018-05-29] MEDS: CefTRIAXone SODIUM 2 GM in DEXTROSE 5%-WATER 50 ML IV SCH (16:50)
[2018-05-29] MEDS: ATORVASTATIN CALCIUM 20 MG TABLET PO SCH (21:09)
[2018-05-29] MEDS: ESCITALOPRAM OXALATE 10 MG TABLET PO SCH (21:09)
[2018-05-29 21:28] LABS: GLUCOMETER DEV NAME(LOC) 5S.1; GLUCOSE,POINT OF CARE 176 MG/DL (70-110)
[2018-05-30] MEDS: APIXABAN 2.5 MG TABLET PO SCH ×2 (02:05→08:04)
[2018-05-30] MEDS: MethylPREDNISolone SOD SUCC 40 MG/ML VIAL IVP SCH ×3 (02:06→12:15)
[2018-05-30 04:38] VITALS: BP 165/93
[2018-05-30 06:08] LABS: ALANINE AMINOTRANSFERASE 27 U/L (12-78); ALBUMIN 2.7 g/dL (3.4-5.0); ALKALINE PHOSPHATASE 85 U/L (46-116); ANION GAP 6 mmol/L (8-16); ASPARTATE AMINOTRANSFERASE 16 U/L (15-37); BILIRUBIN,TOTAL 0.3 mg/dL (0.1-1.0); CALCIUM, TOTAL 9.1 mg/dL (8.8-10.5); CARBON DIOXIDE 32 mmol/L (22-29); CHLORIDE 98 mmol/L (98-107); CREATININE 0.44 mg/dL (0.60-1.30); GLOMERULAR FILTR. RATE CALC > 60 mL/min (>60); GLUCOSE,RANDOM 160 mg/dL (70-110); POTASSIUM 3.8 mmol/L (3.5-5.1); SODIUM SERUM 136 mmol/L (136-145); TOTAL PROTEIN, SERUM 5.6 g/dL (6.4-8.2); UREA NITROGEN, BLOOD 16 mg/dL (7-18)
[2018-05-30 06:24] LABS: GLUCOMETER DEV NAME(LOC) 5N.1; GLUCOSE,POINT OF CARE 206 MG/DL (70-110)
[2018-05-30] MEDS: PANTOPRAZOLE SODIUM 40 MG DR TABLET PO SCH (06:37)
[2018-05-30] MEDS: MetFORMIN HCL 500 MG TABLET PO SCH (08:03)
[2018-05-30] MEDS: METOPROLOL SUCCINATE 50 MG ER TABLET PO SCH (08:03)
[2018-05-30] MEDS: ACARBOSE 50 MG TABLET PO SCH ×2 (08:03→12:15)
[2018-05-30] MEDS: SitaGLIPtin PHOSPHATE 50 MG TABLET PO SCH (08:03)
[2018-05-30] MEDS: NICOTINE 14 MG/24 HOUR PATCH TD SCH (08:03)
[2018-05-30] MEDS: AmLODIPine BESYLATE 5 MG TABLET PO SCH (08:04)
[2018-05-30] MEDS: DOCUSATE SODIUM 250 MG CAPSULE PO SCH (08:04)
[2018-05-30] MEDS: AZITHROMYCIN 250 MG TABLET PO SCH (08:04)
[2018-05-30 08:13] VITALS: BP 156/85
[2018-05-30 08:14] LABS: GLUCOMETER DEV NAME(LOC) 5S.1; GLUCOSE,POINT OF CARE 138 MG/DL (70-110)
[2018-05-30] MEDS: IPRATROPIUM BROMIDE 0.5 MG/2.5 ML NEB SOLUTION NEB SCH ×2 (08:25→13:07)
[2018-05-30] MEDS: ALBUTEROL SULFATE 2.5 MG/0.5 ML NEB SOLUTION NEB SCH ×2 (08:25→13:08)
[2018-05-30 11:56] VITALS: BP 152/88
[2018-05-30] MEDS ORDERED: FUROSEMIDE 20 MG TABLET PO SCH (12:00)
[2018-05-30] MEDS ORDERED: ATOR20TA86 PO (12:07)
[2018-05-30] MEDS ORDERED: ATOR40TA28 PO (12:07)
[2018-05-30] MEDS ORDERED: AMOX-427 PO (12:08)
[2018-05-30] MEDS: INSULIN REGULAR, HUMAN 100 UNITS/ML SQ PRN (12:22)
[2018-05-30 13:04] LABS: GLUCOMETER DEV NAME(LOC) 5S.1; GLUCOSE,POINT OF CARE 239 MG/DL (70-110)
[2018-05-30] MEDS ORDERED: PredniSONE 20 MG TABLET PO SCH (14:30)
[2018-05-31] MEDS ORDERED: POTASSIUM CHLORIDE 8 MEQ ER TABLET PO SCH (09:00)
== END 2018-05-30 15:30 | disposition home or self-care (01) | DRG 291 ==
LOC: EMS 09:49 → 5S 14:17
PROVIDERS: ADMIT Internal Medicine; ATTEND Internal Medicine
DX: I11.0 Hypertensive heart disease with heart failure (principal); J96.01 Acute respiratory failure with hypoxia; J18.9 Pneumonia, unspecified organism; J44.1 Chronic obstructive pulmonary disease with (acute) exacerbation; E87.1 Hypo-osmolality and hyponatremia; I48.92 Unspecified atrial flutter; J45.901 Unspecified asthma with (acute) exacerbation; J44.0 Chronic obstructive pulmonary disease with (acute) lower respiratory infection; E44.0 Moderate protein-calorie malnutrition; I50.33 Acute on chronic diastolic (congestive) heart failure; I48.2 Chronic atrial fibrillation; E11.9 Type 2 diabetes mellitus without complications; E78.5 Hyperlipidemia, unspecified; I27.20 Pulmonary hypertension, unspecified; I35.0 Nonrheumatic aortic (valve) stenosis; I25.10 Atherosclerotic heart disease of native coronary artery without angina pectoris; E78.00 Pure hypercholesterolemia, unspecified; F17.200 Nicotine dependence, unspecified, uncomplicated; I48.0 Paroxysmal atrial fibrillation; K21.9 Gastro-esophageal reflux disease without esophagitis; M19.90 Unspecified osteoarthritis, unspecified site; Z79.01 Long term (current) use of anticoagulants; Z82.49 Family history of ischemic heart disease and other diseases of the circulatory system; Z85.118 Personal history of other malignant neoplasm of bronchus and lung; Z92.3 Personal history of irradiation; Z95.1 Presence of aortocoronary bypass graft; Z99.81 Dependence on supplemental oxygen; Z83.3 Family history of diabetes mellitus; Z68.20 Body mass index [BMI] 20.0-20.9, adult
CPT/HCPCS: 51701; 71275; 83036; 83735; 84443; 93005; 93306; 94640; 96374; 96375; 97116; 97162; 97530; 99291; G0378; J0696; J1940; J2920; J2930; J7050; J7060

== ENCOUNTER 2019-03-11 18:02 | Emergency (ER) | payer MEDICARE, OTHER ==
[~2019-03-11] VITALS: Ht 162.6 cm; Wt 49.1 kg
[~2019-03-11 18:02] MED LIST changes: -ACAR50TA11 PO; +ACAR50TA2 PO; +AMOX-427 PO; +ATOR20TA86 PO; -BACTDSB PO; +ESOM20CA31 PO; -PRAV20TA4 PO; -RABE20TA60 PO; +SITA1TAB6 PO; -SITA1TBM4 PO
[2019-03-11 18:56] LABS: BASOPHILS % (AUTO) 0.5 % (0.0-2.0); EOSINOPHILS % (AUTO) 1.3 % (1.0-6.0); HEMATOCRIT 39.3 % (36-46); LYMPHOCYTES # (AUTO) 1.4 K/uL (1.0-4.8); LYMPHOCYTES % (AUTO) 20.7 % (22.0-44.0); MEAN CORPUSCULAR HEMOGLOBIN 29.9 pg (26.0-34.0); MEAN CORPUSCULAR VOLUME 91 fL (80-100); MONOCYTES # (AUTO) 0.7 K/uL (0.1-1.0); MONOCYTES % (AUTO) 10.3 % (2.0-9.0); NEUTROPHILS # (AUTO) 4.6 K/uL (1.8-7.7); NEUTROPHILS % (AUTO) 67.2 % (40.0-70.0); PLATELET COUNT (AUTO) 169 K/uL (150-450); RED BLOOD CELL COUNT(AUTO) 4.34 MIL/uL (4.00-5.20); RED CELL DISTRIBUTION WIDTH 13.6 % (11.5-14.5)
[2019-03-11 19:04] LABS: ANION GAP 7 mmol/L (8-16); CALCIUM, TOTAL 9.9 mg/dL (8.8-10.5); CARBON DIOXIDE 29 mmol/L (22-29); CHLORIDE 99 mmol/L (98-107); CREATININE 0.75 mg/dL (0.60-1.30); GLOMERULAR FILTR. RATE CALC > 60 mL/min (>60); GLUCOSE,RANDOM 147 mg/dL (70-110); SODIUM SERUM 135 mmol/L (136-145); UREA NITROGEN, BLOOD 28 mg/dL (7-18)
[2019-03-11 19:10] LABS: ALANINE AMINOTRANSFERASE 14 U/L (12-78); ALBUMIN 4.1 g/dL (3.4-5.0); ALKALINE PHOSPHATASE 75 U/L (46-116); AMYLASE 59 U/L (25-115); ASPARTATE AMINOTRANSFERASE 15 U/L (15-37); BILIRUBIN,TOTAL 0.2 mg/dL (0.1-1.0); LIPASE 112 U/L (73-393); TOTAL PROTEIN, SERUM 7.2 g/dL (6.4-8.2)
[2019-03-11 19:54] LABS: GLUCOSE,POINT OF CARE 148 MG/DL (70-110)
[2019-03-11 21:13] LABS: APPEARANCE,URINE CLEAR (CLEAR); BILIRUBIN,URINE NEGATIVE (NEGATIVE); GLUCOSE, URINE (UA) NEGATIVE (NEGATIVE); KETONES,URINE NEGATIVE (NEGATIVE); LEUKOCYTE ESTERASE ,URINE SMALL (NEGATIVE); NITRATE,URINE NEGATIVE (NEGATIVE); OCCULT BLOOD,URINE NEGATIVE (NEGATIVE); PROTEIN,URINE TRACE (NEGATIVE); UROBILINOGEN,URINE 0.2 mg/dL (<=1.0)
[2019-03-11 21:23] LABS: BACTERIA,URINE None Seen /HPF (None Seen); RBC,URINE None Seen /HPF (0-2); SQUAMOUS EPITHELIAL CELL,UR Few /LPF (None Seen); WBC,URINE 0-2 /HPF (0-5)
[2019-03-11] MEDS ORDERED: MORPHINE SULFATE 4 MG/ML SYRINGE IVP ONE (21:30)
[2019-03-11] MEDS ORDERED: ONDANSETRON HCL 4 MG/2 ML VIAL IVP ONE (21:30)
[2019-03-12 00:37] VITALS: BP 144/74
== END 2019-03-12 00:55 | disposition home or self-care (01) ==
LOC: EMS 18:04
DX: R10.13 Epigastric pain (principal); I48.91 Unspecified atrial fibrillation; J45.909 Unspecified asthma, uncomplicated; E11.9 Type 2 diabetes mellitus without complications; K21.9 Gastro-esophageal reflux disease without esophagitis; I11.9 Hypertensive heart disease without heart failure; E78.00 Pure hypercholesterolemia, unspecified; F17.210 Nicotine dependence, cigarettes, uncomplicated; Z85.118 Personal history of other malignant neoplasm of bronchus and lung
CPT/HCPCS: 36415; 74022; 76705; 80053; 81001; 82150; 82962; 83690; 84484; 85025; 85610; 85730; 93005; 96374; 96375; 99285; J2270; J2405

== ENCOUNTER 2020-06-01 22:08 | Emergency (ER) | payer MEDICARE, OTHER ==
[~2020-06-01] VITALS: Ht 165.1 cm; Wt 72.7 kg
[~2020-06-01 22:08] MED LIST changes: +ESCI-8 PO; -ESCI10TA PO
[2020-06-01] MEDS ORDERED: IPRATROPIUM BROMIDE 0.5 MG/2.5 ML NEB SOLUTION NEB ONE (23:00)
[2020-06-01] MEDS ORDERED: ALBUTEROL SULFATE 5 MG/ML 20 ML NEB SOLN [BULK] NEB ONE (23:00)
[2020-06-01] MEDS ORDERED: ALBUTEROL SULFATE 2.5 MG/0.5 ML NEB SOLUTION NEB ONE (23:22)
[2020-06-01 23:54] VITALS: BP 154/92
== END 2020-06-02 00:58 | disposition home or self-care (01) ==
LOC: EMS 22:08
DX: J44.9 Chronic obstructive pulmonary disease, unspecified (principal); I48.91 Unspecified atrial fibrillation; J45.909 Unspecified asthma, uncomplicated; E11.9 Type 2 diabetes mellitus without complications; K21.9 Gastro-esophageal reflux disease without esophagitis; I11.9 Hypertensive heart disease without heart failure; E78.00 Pure hypercholesterolemia, unspecified; F17.210 Nicotine dependence, cigarettes, uncomplicated
CPT/HCPCS: 94640; 99283

== ENCOUNTER 2020-06-29 03:50 | Emergency (ER) | payer MEDICARE, OTHER ==
[~2020-06-29] VITALS: Ht 165.1 cm; Wt 54.5 kg
[2020-06-29 04:13] LABS: GLUCOSE,POINT OF CARE 117 MG/DL (70-110)
[2020-06-29] MEDS ORDERED: MethylPREDNISolone SOD SUCC 125 MG/2 ML VIAL IVP ONE (04:15)
[2020-06-29] MEDS ORDERED: ALBUTEROL SULFATE 5 MG/ML 20 ML NEB SOLN [BULK] NEB ONE (04:15)
[2020-06-29] MEDS ORDERED: IPRATROPIUM BROMIDE 0.5 MG/2.5 ML NEB SOLUTION NEB ONE (04:15)
[2020-06-29 04:40] LABS: BASOPHILS % (AUTO) 0.7 % (0.0-2.0); EOSINOPHILS % (AUTO) 1.7 % (1.0-6.0); HEMATOCRIT 37.9 % (36-46); HEMOGLOBIN 12.5 g/dL (12.0-16.0); LYMPHOCYTES # (AUTO) 1.9 K/uL (1.0-4.8); LYMPHOCYTES % (AUTO) 26.5 % (22.0-44.0); MEAN CORPUSCULAR HEMOGLOBIN 29.4 pg (26.0-34.0); MEAN CORPUSCULAR VOLUME 89 fL (80-100); MONOCYTES # (AUTO) 0.6 K/uL (0.1-1.0); MONOCYTES % (AUTO) 8.7 % (2.0-9.0); NEUTROPHILS # (AUTO) 4.4 K/uL (1.8-7.7); NEUTROPHILS % (AUTO) 62.4 % (40.0-70.0); PLATELET COUNT (AUTO) 172 K/uL (150-450); RED BLOOD CELL COUNT(AUTO) 4.25 MIL/uL (4.00-5.20); RED CELL DISTRIBUTION WIDTH 14.6 % (11.5-14.5)
[2020-06-29 04:49] LABS: CALCIUM, TOTAL 9.5 mg/dL (8.8-10.5); CREATININE 1.32 mg/dL (0.60-1.30); POTASSIUM 4.3 mmol/L (3.5-5.1)
[2020-06-29 04:54] LABS: D-DIMER 0.4 mg/L FEU (0.00-0.50); PROTHROMBIN TIME 10.6 SEC (9.4-11.6)
[2020-06-29 05:13] LABS: ALBUMIN 4.3 g/dL (3.4-5.0); BILIRUBIN,TOTAL 0.2 mg/dL (0.1-1.0); TOTAL PROTEIN, SERUM 7.8 g/dL (6.4-8.2)
[2020-06-29] MEDS ORDERED: DILTIAZEM HCL 5 MG/ML 5 ML VIAL IVP ONE (05:45)
[2020-06-29 07:33] VITALS: BP 131/64
== END 2020-06-29 07:36 | disposition home or self-care (01) ==
LOC: EMS 03:51
DX: R06.02 Shortness of breath (principal); R00.0 Tachycardia, unspecified; I48.91 Unspecified atrial fibrillation; J45.909 Unspecified asthma, uncomplicated; E11.9 Type 2 diabetes mellitus without complications; K21.9 Gastro-esophageal reflux disease without esophagitis; I11.9 Hypertensive heart disease without heart failure; E78.00 Pure hypercholesterolemia, unspecified; F17.210 Nicotine dependence, cigarettes, uncomplicated
CPT/HCPCS: 36415; 71045; 80053; 82550; 82962; 83880; 84484; 85025; 85379; 85610; 85730; 93005; 94640; 96374; 96375; 99285; J2930; J3490

== ENCOUNTER 2020-07-14 00:01 | Inpatient (IN) | payer MEDICARE, OTHER ==
[~2020-07-14] VITALS: Ht 162.6 cm; Wt 65.9 kg
[~2020-07-14 00:01] MED LIST changes: +UMEC62.5 IH; -UMEC62.5 PO
[2020-07-14] MEDS ORDERED: IPRATROPIUM BROMIDE 0.5 MG/2.5 ML NEB SOLUTION NEB ONE (00:15)
[2020-07-14] MEDS ORDERED: ALBUTEROL SULFATE 5 MG/ML 20 ML NEB SOLN [BULK] NEB ONE (00:15)
[2020-07-14] MEDS ORDERED: LORazepam 0.5 MG TABLET PO ONE (00:15)
[2020-07-14 02:47] LABS: BASOPHILS % (AUTO) 0.5 % (0.0-2.0); EOSINOPHILS % (AUTO) 1.2 % (1.0-6.0); HEMATOCRIT 32.6 % (36-46); HEMOGLOBIN 10.9 g/dL (12.0-16.0); LYMPHOCYTES # (AUTO) 0.8 K/uL (1.0-4.8); LYMPHOCYTES % (AUTO) 8.5 % (22.0-44.0); MEAN CORPUSCULAR HEMOGLOBIN 29.7 pg (26.0-34.0); MEAN CORPUSCULAR HGB CONC 33.4 G/dL (31.0-37.0); MEAN CORPUSCULAR VOLUME 89 fL (80-100); MONOCYTES # (AUTO) 0.7 K/uL (0.1-1.0); MONOCYTES % (AUTO) 7.3 % (2.0-9.0); NEUTROPHILS # (AUTO) 8.1 K/uL (1.8-7.7); NEUTROPHILS % (AUTO) 82.5 % (40.0-70.0); PLATELET COUNT (AUTO) 120 K/uL (150-450); RED BLOOD CELL COUNT(AUTO) 3.66 MIL/uL (4.00-5.20); RED CELL DISTRIBUTION WIDTH 14.9 % (11.5-14.5)
[2020-07-14 02:56] LABS: CALCIUM, TOTAL 8.9 mg/dL (8.8-10.5); CREATININE 1.15 mg/dL (0.60-1.30); POTASSIUM 4.4 mmol/L (3.5-5.1)
[2020-07-14 03:21] LABS: ALBUMIN 3.7 g/dL (3.4-5.0); BILIRUBIN,TOTAL 0.3 mg/dL (0.1-1.0); MAGNESIUM 1.8 mg/dL (1.80-2.40); TOTAL PROTEIN, SERUM 6.4 g/dL (6.4-8.2)
[2020-07-14] MEDS ORDERED: ONDANSETRON HCL 4 MG/2 ML VIAL IVP PRN ×2 (09:15→11:00)
[2020-07-14] MEDS ORDERED: ACETAMINOPHEN 325 MG TABLET PO PRN ×2 (09:15→11:00)
[2020-07-14 09:18] LABS: COVID AG,FIA SOURCE NASOPHARYNGEAL
[2020-07-14] MEDS ORDERED: ALPRAZolam 0.5 MG TABLET PO PRN (10:45)
[2020-07-14] MEDS ORDERED: HydrALAZINE HCL 20 MG/ML VIAL IVP PRN (10:45)
[2020-07-14] MEDS ORDERED: LEVALBUTEROL TARTRATE HFA 45 MCG/PUFF 15 GM INHALER IH PRN (10:45)
[2020-07-14] MEDS: IPRATROPIUM BROMIDE 0.5 MG/2.5 ML NEB SOLUTION NEB SCH ×3 (10:57→19:38)
[2020-07-14] MEDS: ALBUTEROL SULFATE 2.5 MG/0.5 ML NEB SOLUTION NEB SCH ×3 (10:57→19:38)
[2020-07-14] MEDS ORDERED: BISACODYL 10 MG RECTAL RECTAL SUPPOSITORY PR PRN (11:00)
[2020-07-14] MEDS ORDERED: MAGNESIUM HYDROXIDE SUSPENSION 30 ML UDCUP PO PRN (11:00)
[2020-07-14] MEDS ORDERED: DOCUSATE SODIUM 100 MG CAPSULE PO PRN (11:00)
[2020-07-14] MEDS ORDERED: 0.9% SODIUM CHLORIDE 10 ML SYRINGE IVP PRN (11:00)
[2020-07-14] MEDS ORDERED: DEXTROSE 50%-WATER 25 GM/50 ML SYRINGE IVP PRN (11:00)
[2020-07-14 12:08] VITALS: BP 162/91
[2020-07-14 14:33] LABS: GLUCOMETER DEV NAME(LOC) 6N.1; GLUCOSE,POINT OF CARE 110 MG/DL (70-110)
[2020-07-14 15:16] VITALS: BP 146/71
[2020-07-14 17:30] LABS: GLUCOMETER DEV NAME(LOC) 6S.1; GLUCOSE,POINT OF CARE 95 MG/DL (70-110)
[2020-07-14] MEDS: ROFLUMILAST 500 MCG TABLET PO SCH (18:23)
[2020-07-14] MEDS: APIXABAN 2.5 MG TABLET PO SCH (18:24)
[2020-07-14 20:12] VITALS: BP 154/85
[2020-07-14] MEDS: BUDESONIDE/FORMOTEROL FUMARATE 160-4.5 MCG/PUFF 10.2 GM INHALER IH SCH (21:00)
[2020-07-14] MEDS: ATORVASTATIN CALCIUM 20 MG TABLET PO SCH (21:00)
[2020-07-14] MEDS: ESCITALOPRAM OXALATE 10 MG TABLET PO SCH (21:00)
[2020-07-14] MEDS: MethylPREDNISolone SOD SUCC 40 MG/ML VIAL IVP SCH (21:00)
[2020-07-14 23:25] VITALS: BP 165/104
[2020-07-14 23:29] VITALS: BP 194/103
[2020-07-14] MEDS: HydrALAZINE HCL 25 MG TABLET PO PRN (23:41)
[2020-07-15 00:51] VITALS: BP_SYST 143; BP_SYST 173; BP_DIAS 77
[2020-07-15 04:55] VITALS: BP 116/68
[2020-07-15 05:09] LABS: GLUCOMETER DEV NAME(LOC) 6S.1; GLUCOSE,POINT OF CARE 104 MG/DL (70-110)
[2020-07-15 06:30] LABS: BASOPHILS % (AUTO) 0.2 % (0.0-2.0); EOSINOPHILS % (AUTO) 0 % (1.0-6.0); HEMATOCRIT 34.7 % (36-46); HEMOGLOBIN 11.4 g/dL (12.0-16.0); LYMPHOCYTES # (AUTO) 0.4 K/uL (1.0-4.8); LYMPHOCYTES % (AUTO) 4.2 % (22.0-44.0); MEAN CORPUSCULAR HEMOGLOBIN 29.3 pg (26.0-34.0); MEAN CORPUSCULAR HGB CONC 32.7 G/dL (31.0-37.0); MEAN CORPUSCULAR VOLUME 90 fL (80-100); MONOCYTES # (AUTO) 0.1 K/uL (0.1-1.0); MONOCYTES % (AUTO) 0.7 % (2.0-9.0); NEUTROPHILS # (AUTO) 9.2 K/uL (1.8-7.7); PLATELET COUNT (AUTO) 139 K/uL (150-450); RED BLOOD CELL COUNT(AUTO) 3.87 MIL/uL (4.00-5.20); RED CELL DISTRIBUTION WIDTH 14.8 % (11.5-14.5)
[2020-07-15] MEDS: LINACLOTIDE 145 MCG CAPSULE PO SCH (06:33)
[2020-07-15 06:41] LABS: ALANINE AMINOTRANSFERASE 24 U/L (12-78); ALBUMIN 3.7 g/dL (3.4-5.0); ALKALINE PHOSPHATASE 83 U/L (46-116); ANION GAP 8 mmol/L (8-16); ASPARTATE AMINOTRANSFERASE 14 U/L (15-37); BILIRUBIN,TOTAL 0.4 mg/dL (0.1-1.0); CALCIUM, TOTAL 9.2 mg/dL (8.8-10.5); CARBON DIOXIDE 28 mmol/L (22-29); CHLORIDE 100 mmol/L (98-107); CREATININE 0.73 mg/dL (0.60-1.30); GLUCOSE,RANDOM 189 mg/dL (70-110); POTASSIUM 4.4 mmol/L (3.5-5.1); SODIUM SERUM 136 mmol/L (136-145); TOTAL PROTEIN, SERUM 6.5 g/dL (6.4-8.2); UREA NITROGEN, BLOOD 23 mg/dL (7-18)
[2020-07-15] MEDS: INSULIN LISPRO 100 UNITS/ML SQ PRN ×3 (06:42→16:46)
[2020-07-15 06:47] LABS: NEUTROPHILS % (AUTO) 94.9 % (40.0-70.0)
[2020-07-15 06:54] LABS: GLOMERULAR FILTR. RATE CALC > 60 mL/min (>60)
[2020-07-15 08:41] VITALS: BP 129/71
[2020-07-15 08:43] LABS: GLUCOMETER DEV NAME(LOC) 6S.1; GLUCOSE,POINT OF CARE 189 MG/DL (70-110)
[2020-07-15] MEDS: APIXABAN 2.5 MG TABLET PO SCH ×2 (08:56→16:47)
[2020-07-15] MEDS: METOPROLOL SUCCINATE 50 MG ER TABLET PO SCH (08:56)
[2020-07-15] MEDS: MethylPREDNISolone SOD SUCC 40 MG/ML VIAL IVP SCH ×2 (08:56→20:10)
[2020-07-15] MEDS: PANTOPRAZOLE SODIUM 40 MG DR TABLET PO SCH (08:56)
[2020-07-15] MEDS: BUDESONIDE/FORMOTEROL FUMARATE 160-4.5 MCG/PUFF 10.2 GM INHALER IH SCH ×2 (08:57→20:12)
[2020-07-15] MEDS ORDERED: LEVALBUTEROL HCL 1.25 MG/0.5 ML NEB SOLUTION NEB PRN (11:30)
[2020-07-15] MEDS ORDERED: 0.9% SODIUM CHLORIDE 5 ML NEB SOLUTION NEB ONE ×3 (11:40→20:42)
[2020-07-15 13:09] LABS: GLUCOMETER DEV NAME(LOC) 6N.1; GLUCOSE,POINT OF CARE 141 MG/DL (70-110)
[2020-07-15] MEDS: LEVALBUTEROL HCL 1.25 MG/0.5 ML NEB SOLUTION NEB SCH ×2 (14:09→20:48)
[2020-07-15 16:02] VITALS: BP 137/94
[2020-07-15] MEDS: ROFLUMILAST 500 MCG TABLET PO SCH (16:47)
[2020-07-15 19:34] LABS: GLUCOMETER DEV NAME(LOC) 6S.1; GLUCOSE,POINT OF CARE 265 MG/DL (70-110)
[2020-07-15 20:06] VITALS: BP 154/74
[2020-07-15] MEDS: DICYCLOMINE HCL 10 MG CAPSULE PO PRN (20:11)
[2020-07-15] MEDS: ATORVASTATIN CALCIUM 20 MG TABLET PO SCH (20:11)
[2020-07-15] MEDS: ESCITALOPRAM OXALATE 10 MG TABLET PO SCH (20:11)
[2020-07-15 22:42] LABS: GLUCOMETER DEV NAME(LOC) 6S.1; GLUCOSE,POINT OF CARE 110 MG/DL (70-110)
[2020-07-15 23:40] VITALS: BP 134/65
[2020-07-16] MEDS ORDERED: 0.9% SODIUM CHLORIDE 5 ML NEB SOLUTION NEB ONE (01:36)
[2020-07-16] MEDS: LEVALBUTEROL HCL 1.25 MG/0.5 ML NEB SOLUTION NEB SCH ×4 (01:40→21:29)
[2020-07-16 04:41] VITALS: BP 121/64
[2020-07-16] MEDS: LINACLOTIDE 145 MCG CAPSULE PO SCH (06:27)
[2020-07-16] MEDS: INSULIN LISPRO 100 UNITS/ML SQ PRN ×3 (06:31→17:03)
[2020-07-16 07:43] LABS: GLUCOMETER DEV NAME(LOC) 6S.1; GLUCOSE,POINT OF CARE 169 MG/DL (70-110)
[2020-07-16] MEDS: METOPROLOL SUCCINATE 50 MG ER TABLET PO SCH (08:56)
[2020-07-16] MEDS: BUDESONIDE/FORMOTEROL FUMARATE 160-4.5 MCG/PUFF 10.2 GM INHALER IH SCH ×2 (08:56→21:16)
[2020-07-16] MEDS: APIXABAN 2.5 MG TABLET PO SCH ×2 (08:56→18:00)
[2020-07-16] MEDS: MethylPREDNISolone SOD SUCC 40 MG/ML VIAL IVP SCH ×3 (08:56→23:18)
[2020-07-16] MEDS: PANTOPRAZOLE SODIUM 40 MG DR TABLET PO SCH (08:56)
[2020-07-16 09:09] VITALS: BP 139/75
[2020-07-16 12:27] LABS: GLUCOMETER DEV NAME(LOC) 6N.1; GLUCOSE,POINT OF CARE 146 MG/DL (70-110)
[2020-07-16] MEDS: BENZONATATE 100 MG CAPSULE PO SCH ×2 (15:22→21:16)
[2020-07-16] MEDS: GuaiFENesin SR 600 MG ER TABLET PO SCH ×2 (15:22→21:16)
[2020-07-16 16:10] VITALS: BP 152/73
[2020-07-16 17:45] LABS: GLUCOMETER DEV NAME(LOC) 6N.1; GLUCOSE,POINT OF CARE 201 MG/DL (70-110)
[2020-07-16] MEDS: ROFLUMILAST 500 MCG TABLET PO SCH (18:00)
[2020-07-16 20:10] VITALS: BP 147/79
[2020-07-16] MEDS: ATORVASTATIN CALCIUM 20 MG TABLET PO SCH (21:16)
[2020-07-16] MEDS: ESCITALOPRAM OXALATE 10 MG TABLET PO SCH (21:16)
[2020-07-16] MEDS: DICYCLOMINE HCL 10 MG CAPSULE PO PRN (21:21)
[2020-07-17] VITALS (9 sets, daily range): BP systolic 126–180; BP diastolic 61–101
[2020-07-17] MEDS ORDERED: 0.9% SODIUM CHLORIDE 5 ML NEB SOLUTION NEB ONE ×3 (02:30→14:34)
[2020-07-17] MEDS: LEVALBUTEROL HCL 1.25 MG/0.5 ML NEB SOLUTION NEB SCH ×4 (02:51→21:28)
[2020-07-17 05:36] LABS: GLUCOMETER DEV NAME(LOC) 6N.1; GLUCOSE,POINT OF CARE 204 MG/DL (70-110)
[2020-07-17] MEDS: LINACLOTIDE 145 MCG CAPSULE PO SCH (06:14)
[2020-07-17 06:17] LABS: BASOPHILS % (AUTO) 0.2 % (0.0-2.0); EOSINOPHILS % (AUTO) 0 % (1.0-6.0); HEMATOCRIT 37.7 % (36-46); HEMOGLOBIN 12.5 g/dL (12.0-16.0); LYMPHOCYTES # (AUTO) 0.5 K/uL (1.0-4.8); LYMPHOCYTES % (AUTO) 4.6 % (22.0-44.0); MEAN CORPUSCULAR HEMOGLOBIN 29.5 pg (26.0-34.0); MEAN CORPUSCULAR VOLUME 89 fL (80-100); MONOCYTES # (AUTO) 0.2 K/uL (0.1-1.0); MONOCYTES % (AUTO) 1.8 % (2.0-9.0); NEUTROPHILS # (AUTO) 9.6 K/uL (1.8-7.7); PLATELET COUNT (AUTO) 141 K/uL (150-450); RED BLOOD CELL COUNT(AUTO) 4.22 MIL/uL (4.00-5.20)
[2020-07-17 06:22] LABS: NEUTROPHILS % (AUTO) 93.4 % (40.0-70.0)
[2020-07-17 06:28] LABS: CALCIUM, TOTAL 9.5 mg/dL (8.8-10.5); CREATININE 1.01 mg/dL (0.60-1.30); POTASSIUM 4.2 mmol/L (3.5-5.1)
[2020-07-17] MEDS: INSULIN LISPRO 100 UNITS/ML SQ PRN ×4 (06:39→20:04)
[2020-07-17 09:25] LABS: GLUCOMETER DEV NAME(LOC) 6S.1; GLUCOSE,POINT OF CARE 207 MG/DL (70-110)
[2020-07-17] MEDS: GuaiFENesin SR 600 MG ER TABLET PO SCH ×2 (10:01→20:02)
[2020-07-17] MEDS: METOPROLOL SUCCINATE 50 MG ER TABLET PO SCH (10:02)
[2020-07-17] MEDS: APIXABAN 2.5 MG TABLET PO SCH ×2 (10:03→17:44)
[2020-07-17] MEDS: PANTOPRAZOLE SODIUM 40 MG DR TABLET PO SCH (10:03)
[2020-07-17] MEDS: BENZONATATE 100 MG CAPSULE PO SCH ×3 (10:03→20:01)
[2020-07-17] MEDS: MethylPREDNISolone SOD SUCC 40 MG/ML VIAL IVP SCH ×2 (10:04→15:47)
[2020-07-17] MEDS: BUDESONIDE/FORMOTEROL FUMARATE 160-4.5 MCG/PUFF 10.2 GM INHALER IH SCH ×2 (10:05→20:02)
[2020-07-17 13:16] LABS: GLUCOMETER DEV NAME(LOC) 6S.1; GLUCOSE,POINT OF CARE 134 MG/DL (70-110)
[2020-07-17] MEDS ORDERED: IOHEXOL 350 MG/ML 100 ML VIAL ONE (13:45)
[2020-07-17] MEDS ORDERED: SODIUM CHLORIDE 0.9% 100 ML ONE (13:45)
[2020-07-17] MEDS: ROFLUMILAST 500 MCG TABLET PO SCH (17:45)
[2020-07-17] MEDS: HydrALAZINE HCL 25 MG TABLET PO PRN (19:13)
[2020-07-17] MEDS: ATORVASTATIN CALCIUM 20 MG TABLET PO SCH (20:01)
[2020-07-17] MEDS: ESCITALOPRAM OXALATE 10 MG TABLET PO SCH (20:01)
[2020-07-17 20:18] LABS: GLUCOMETER DEV NAME(LOC) 6N.1; GLUCOSE,POINT OF CARE 237 MG/DL (70-110)
[2020-07-17 21:53] LABS: GLUCOMETER DEV NAME(LOC) 6S.1; GLUCOSE,POINT OF CARE 179 MG/DL (70-110)
== END 2020-07-17 23:05 | DRG 189 ==
LOC: EMS 00:02 → 6S 10:23
PROVIDERS: ADMIT Internal Medicine; ATTEND Internal Medicine
DX: J96.20 Acute and chronic respiratory failure, unspecified whether with hypoxia or hypercapnia (principal); J44.1 Chronic obstructive pulmonary disease with (acute) exacerbation; K58.9 Irritable bowel syndrome, unspecified; I48.91 Unspecified atrial fibrillation; I11.9 Hypertensive heart disease without heart failure; F41.9 Anxiety disorder, unspecified; E11.36 Type 2 diabetes mellitus with diabetic cataract; E78.5 Hyperlipidemia, unspecified; D64.9 Anemia, unspecified; I44.0 Atrioventricular block, first degree; K21.9 Gastro-esophageal reflux disease without esophagitis; F17.210 Nicotine dependence, cigarettes, uncomplicated; I25.10 Atherosclerotic heart disease of native coronary artery without angina pectoris; Z20.822 Contact with and (suspected) exposure to COVID-19; E78.00 Pure hypercholesterolemia, unspecified; Z95.1 Presence of aortocoronary bypass graft; Z83.3 Family history of diabetes mellitus; Z82.49 Family history of ischemic heart disease and other diseases of the circulatory system; Z79.01 Long term (current) use of anticoagulants; Z79.899 Other long term (current) drug therapy
CPT/HCPCS: 71046; 71260; 80048; 80053; 82550; 82962; 83036; 83735; 83880; 84145; 84484; 85025; 87426; 93005; 94640; 94667; 94668; 97162; 97166; 97535; 99285; A9575; J2920; J3535; J7050; 36415-L1; 36415-TC; J7613; Z7610

== ENCOUNTER 2020-10-05 10:39 | Day surgery (SDC) | payer MEDICARE, OTHER ==
[~2020-10-05] VITALS: Ht 162.6 cm; Wt 54.5 kg
[~2020-10-05 10:39] MED LIST changes: -AMOX-427 PO; +SODIUM CHLORIDE 0.9% 1,000 ML ONE
[2020-10-05 11:04] LABS: COVID AG,FIA SOURCE NASOPHARYNGEAL
[2020-10-05] MEDS ORDERED: ROFL500T PO (11:58)
[2020-10-05] MEDS ORDERED: FURO20 PO (11:58)
[2020-10-05] MEDS ORDERED: MIRT30 PO (11:58)
[2020-10-05] MEDS ORDERED: LISI-894 PO (11:58)
[2020-10-05] MEDS ORDERED: SUCR1TAB28 PO (11:58)
[2020-10-05] MEDS ORDERED: PROPOFOL 1% 20 ML VIAL IVP ONE (12:00)
[2020-10-05] MEDS ORDERED: SODIUM CHLORIDE 0.9% 1,000 ML IV ONE (12:00)
[2020-10-05 13:24] LABS: GLUCOMETER DEV NAME(LOC) SDS.; GLUCOSE,POINT OF CARE 127 MG/DL (70-110)
== END 2020-10-05 14:22 | disposition home or self-care (01) ==
LOC: SURGERY 10:39
PROVIDERS: ATTEND Internal Medicine Gastroenterology
DX: K29.70 Gastritis, unspecified, without bleeding (principal); E78.00 Pure hypercholesterolemia, unspecified; E11.9 Type 2 diabetes mellitus without complications; I25.2 Old myocardial infarction; I10 Essential (primary) hypertension; Z95.4 Presence of other heart-valve replacement; Z95.5 Presence of coronary angioplasty implant and graft; J44.9 Chronic obstructive pulmonary disease, unspecified; Z88.8 Allergy status to other drugs, medicaments and biological substances; Z98.890 Other specified postprocedural states; Z87.891 Personal history of nicotine dependence
CPT/HCPCS: 43239; 82962; 87426; C9803; J7030; J2704

== ENCOUNTER 2020-10-18 23:55 | Emergency (ER) | payer MEDICARE, OTHER ==
[~2020-10-18] VITALS: Ht 162.6 cm; Wt 50.0 kg
[~2020-10-18 23:55] MED LIST changes: -ESCI-8 PO; +FURO20 PO; +LISI-894 PO; +MIRT30 PO; -SODIUM CHLORIDE 0.9% 1,000 ML ONE; +SUCR1TAB28 PO
[2020-10-19] MEDS ORDERED: ALBUTEROL SULFATE 2.5 MG/0.5 ML NEB SOLUTION NEB ONE ×2 (00:30→03:30)
[2020-10-19] MEDS ORDERED: IPRATROPIUM BROMIDE 0.5 MG/2.5 ML NEB SOLUTION NEB ONE (00:30)
[2020-10-19 00:51] LABS: BASOPHILS % (AUTO) 0.2 % (0.0-2.0); EOSINOPHILS % (AUTO) 0.2 % (1.0-6.0); HEMATOCRIT 34.1 % (36-46); HEMOGLOBIN 11.2 g/dL (12.0-16.0); LYMPHOCYTES # (AUTO) 3.1 K/uL (1.0-4.8); LYMPHOCYTES % (AUTO) 23.7 % (22.0-44.0); MEAN CORPUSCULAR HEMOGLOBIN 29.2 pg (26.0-34.0); MEAN CORPUSCULAR HGB CONC 32.8 G/dL (31.0-37.0); MEAN CORPUSCULAR VOLUME 89 fL (80-100); MONOCYTES % (AUTO) 7.9 % (2.0-9.0); NEUTROPHILS # (AUTO) 8.8 K/uL (1.8-7.7); PLATELET COUNT (AUTO) 158 K/uL (150-450); RED BLOOD CELL COUNT(AUTO) 3.83 MIL/uL (4.00-5.20); RED CELL DISTRIBUTION WIDTH 14.2 % (11.5-14.5)
[2020-10-19 00:56] LABS: CALCIUM, TOTAL 9.2 mg/dL (8.8-10.5); CREATININE 1.12 mg/dL (0.60-1.30); POTASSIUM 4.2 mmol/L (3.5-5.1)
[2020-10-19 01:02] LABS: BILIRUBIN,TOTAL 0.2 mg/dL (0.1-1.0); TOTAL PROTEIN, SERUM 7.2 g/dL (6.4-8.2)
[2020-10-19 01:03] LABS: COVID AG,FIA SOURCE NASOPHARYNGEAL
[2020-10-19] MEDS ORDERED: LORazepam 0.5 MG TABLET PO ONE (03:00)
[2020-10-19 04:03] VITALS: BP 138/82
== END 2020-10-19 04:00 | disposition home or self-care (01) ==
LOC: EMS 23:55
DX: J44.1 Chronic obstructive pulmonary disease with (acute) exacerbation (principal); I48.91 Unspecified atrial fibrillation; J45.909 Unspecified asthma, uncomplicated; E11.9 Type 2 diabetes mellitus without complications; I11.9 Hypertensive heart disease without heart failure; E78.00 Pure hypercholesterolemia, unspecified; F17.210 Nicotine dependence, cigarettes, uncomplicated; F41.9 Anxiety disorder, unspecified; Z20.822 Contact with and (suspected) exposure to COVID-19
CPT/HCPCS: 80053; 83880; 84484; 85025; 94640; 99285

== ENCOUNTER 2020-10-31 21:33 | Emergency (ER) | payer MEDICARE, OTHER ==
[~2020-10-31] VITALS: Ht 162.6 cm; Wt 50.0 kg
[2020-10-31 23:27] VITALS: BP 137/70
== END 2020-11-01 00:12 | disposition home or self-care (01) ==
LOC: EMS 21:36
DX: J45.909 Unspecified asthma, uncomplicated (principal)
CPT/HCPCS: 99281; Z7502

== ENCOUNTER 2021-01-03 20:02 | Inpatient (IN) | payer MEDICARE, OTHER ==
[~2021-01-03] VITALS: Ht 160 cm; Wt 58.6 kg
[2021-01-03 20:40] LABS: BASOPHILS % (AUTO) 0.6 % (0.0-2.0); EOSINOPHILS % (AUTO) 2.6 % (1.0-6.0); HEMATOCRIT 35.6 % (36-46); HEMOGLOBIN 11.9 g/dL (12.0-16.0); LYMPHOCYTES # (AUTO) 2.2 K/uL (1.0-4.8); LYMPHOCYTES % (AUTO) 22.9 % (22.0-44.0); MEAN CORPUSCULAR HEMOGLOBIN 30.2 pg (26.0-34.0); MEAN CORPUSCULAR HGB CONC 33.4 G/dL (31.0-37.0); MEAN CORPUSCULAR VOLUME 90 fL (80-100); MONOCYTES # (AUTO) 0.8 K/uL (0.1-1.0); MONOCYTES % (AUTO) 7.9 % (2.0-9.0); NEUTROPHILS # (AUTO) 6.3 K/uL (1.8-7.7); PLATELET COUNT (AUTO) 145 K/uL (150-450); RED BLOOD CELL COUNT(AUTO) 3.94 MIL/uL (4.00-5.20); RED CELL DISTRIBUTION WIDTH 13.8 % (11.5-14.5)
[2021-01-03 20:51] LABS: CALCIUM, TOTAL 9.6 mg/dL (8.8-10.5); CREATININE 1.06 mg/dL (0.60-1.30); POTASSIUM 4.3 mmol/L (3.5-5.1)
[2021-01-03 20:57] LABS: ALBUMIN 4.1 g/dL (3.4-5.0); BILIRUBIN,TOTAL 0.1 mg/dL (0.1-1.0); TOTAL PROTEIN, SERUM 7.3 g/dL (6.4-8.2)
[2021-01-03] MEDS ORDERED: ASPIRIN 81 MG CHEWABLE TABLET PO ONE (21:00)
[2021-01-03] MEDS ORDERED: LORazepam 1 MG TABLET PO ONE (21:00)
[2021-01-03] MEDS ORDERED: ALBUTEROL SULFATE 5 MG/ML 20 ML NEB SOLN [BULK] NEB ONE (21:15)
[2021-01-03] MEDS ORDERED: MethylPREDNISolone SOD SUCC 125 MG/2 ML VIAL IVP ONE (21:15)
[2021-01-03 21:25] LABS: COVID AG,FIA SOURCE NASOPHARYNGEAL
[2021-01-03] MEDS ORDERED: 0.9% SODIUM CHLORIDE 5 ML NEB SOLUTION NEB ONE (21:31)
[2021-01-03] MEDS ORDERED: AZITHROMYCIN 500 MG/NS 250 ML IV ONE (22:15)
[2021-01-03] MEDS ORDERED: MIRT30 PO (23:26)
[2021-01-03] MEDS ORDERED: BUSP10TA23 PO (23:26)
[2021-01-03] MEDS ORDERED: FLUT1BLS15 PO (23:26)
[2021-01-03] MEDS ORDERED: DICY10 PO (23:26)
[2021-01-04 01:09] VITALS: BP 117/89
[2021-01-04] MEDS ORDERED: PNEUMOCOCCAL VACCINE POLYVALENT 0.5 ML VIAL [PPSV23] IM. ONE (03:45)
[2021-01-04 04:23] VITALS: BP 105/59
[2021-01-04 07:51] VITALS: BP 123/45
[2021-01-04] MEDS ORDERED: LISINOPRIL 20 MG TABLET PO SCH (10:00)
[2021-01-04] MEDS ORDERED: APIXABAN 2.5 MG TABLET PO SCH (10:00)
[2021-01-04] MEDS ORDERED: ROFLUMILAST 500 MCG TABLET PO SCH (10:00)
[2021-01-04] MEDS ORDERED: SUCRALFATE 1 GM TABLET PO SCH (10:00)
[2021-01-04] MEDS ORDERED: METOPROLOL SUCCINATE 50 MG ER TABLET PO SCH (10:00)
[2021-01-04] MEDS ORDERED: DICYCLOMINE HCL 10 MG CAPSULE PO PRN (10:00)
[2021-01-04] MEDS ORDERED: ALPRAZolam 0.5 MG TABLET PO PRN (10:00)
[2021-01-04] MEDS ORDERED: ESOMEPRAZOLE MAG TRIHYDRATE 20 MG CAPSULE PO SCH (10:00)
[2021-01-04] MEDS ORDERED: LINACLOTIDE 290 MCG CAPSULE PO SCH (10:00)
[2021-01-04] MEDS ORDERED: BusPIRone HCL 10 MG TABLET PO SCH (10:00)
[2021-01-04] MEDS: BUDESONIDE/FORMOTEROL FUMARATE 160-4.5 MCG/PUFF 10.2 GM INHALER IH SCH ×2 (10:00→11:44)
[2021-01-04] MEDS ORDERED: LINACLOTIDE 145 MCG CAPSULE PO SCH (10:04)
[2021-01-04 11:57] VITALS: BP 144/94
[2021-01-04] MEDS ORDERED: ACARBOSE 50 MG TABLET PO SCH (12:00)
[2021-01-04] MEDS ORDERED: 0.9% SODIUM CHLORIDE 10 ML SYRINGE IVP PRN ×2 (13:00)
[2021-01-04] MEDS ORDERED: ZOLPIDEM TARTRATE 5 MG TABLET PO PRN (13:00)
[2021-01-04] MEDS ORDERED: MORPHINE SULFATE 2 MG/ML SYRINGE IVP PRN (13:00)
[2021-01-04] MEDS ORDERED: ALBUTEROL SULFATE 2.5 MG/0.5 ML NEB SOLUTION NEB PRN (13:00)
[2021-01-04] MEDS ORDERED: HYDROCODONE/ACETAMINOPHEN 5-325 MG TABLET PO PRN (13:00)
[2021-01-04] MEDS ORDERED: ONDANSETRON HCL 4 MG/2 ML VIAL IVP PRN (13:00)
[2021-01-04] MEDS ORDERED: ACETAMINOPHEN 325 MG TABLET PO PRN (13:00)
[2021-01-04] MEDS ORDERED: IPRATROPIUM BROMIDE 0.5 MG/2.5 ML NEB SOLUTION NEB PRN (13:00)
[2021-01-04] MEDS ORDERED: MIRTAZAPINE 30 MG TABLET PO SCH (21:00)
[2021-01-04] MEDS ORDERED: ATORVASTATIN CALCIUM 20 MG TABLET PO SCH ×2 (21:00)
[2021-01-06] MEDS ORDERED: FUROSEMIDE 20 MG TABLET PO SCH (09:00)
== END 2021-01-04 16:25 | disposition home or self-care (01) | DRG 191 ==
LOC: EMS 20:07 → 5S 23:00
PROVIDERS: ADMIT Internal Medicine; ATTEND Internal Medicine
DX: J44.1 Chronic obstructive pulmonary disease with (acute) exacerbation (principal); I48.20 Chronic atrial fibrillation, unspecified; I50.32 Chronic diastolic (congestive) heart failure; J96.10 Chronic respiratory failure, unspecified whether with hypoxia or hypercapnia; R07.89 Other chest pain; E78.00 Pure hypercholesterolemia, unspecified; E78.5 Hyperlipidemia, unspecified; I11.0 Hypertensive heart disease with heart failure; F41.9 Anxiety disorder, unspecified; K21.9 Gastro-esophageal reflux disease without esophagitis; F32.A Depression, unspecified; E11.9 Type 2 diabetes mellitus without complications; I25.10 Atherosclerotic heart disease of native coronary artery without angina pectoris; Z79.899 Other long term (current) drug therapy; Z85.118 Personal history of other malignant neoplasm of bronchus and lung; Z87.891 Personal history of nicotine dependence; Z95.1 Presence of aortocoronary bypass graft; Z20.822 Contact with and (suspected) exposure to COVID-19
CPT/HCPCS: 71045; 80053; 83880; 84484; 85025; 93005; 94640; 99285; J0456; J2930; Q9967; 36415-L1; 36415-TC; J7611; J7613

== ENCOUNTER 2021-04-02 21:17 | Inpatient (IN) | payer MEDICARE, OTHER ==
[~2021-04-02] VITALS: Ht 162.6 cm; Wt 56.2 kg
[~2021-04-02 21:17] MED LIST changes: -BUDE10.2 IH; +BUSP10TA23 PO; +FLUT1BLS15 PO
[2021-04-02] MEDS ORDERED: ALBUTEROL SULFATE 5 MG/ML 20 ML NEB SOLN [BULK] NEB ONE (21:30)
[2021-04-02] MEDS ORDERED: IPRATROPIUM BROMIDE 0.5 MG/2.5 ML NEB SOLUTION NEB ONE (21:30)
[2021-04-02] MEDS ORDERED: MethylPREDNISolone SOD SUCC 125 MG/2 ML VIAL IVP ONE (21:30)
[2021-04-02 21:36] LABS: BASOPHILS % (AUTO) 0.9 % (0.0-2.0); EOSINOPHILS % (AUTO) 2.1 % (1.0-6.0); HEMATOCRIT 38.2 % (36-46); HEMOGLOBIN 12.8 g/dL (12.0-16.0); LYMPHOCYTES # (AUTO) 3.1 K/uL (1.0-4.8); LYMPHOCYTES % (AUTO) 34.4 % (22.0-44.0); MEAN CORPUSCULAR HGB CONC 33.4 G/dL (31.0-37.0); MEAN CORPUSCULAR VOLUME 87 fL (80-100); MONOCYTES # (AUTO) 0.8 K/uL (0.1-1.0); MONOCYTES % (AUTO) 9.5 % (2.0-9.0); NEUTROPHILS # (AUTO) 4.7 K/uL (1.8-7.7); NEUTROPHILS % (AUTO) 53.1 % (40.0-70.0); PLATELET COUNT (AUTO) 157 K/uL (150-450); RED BLOOD CELL COUNT(AUTO) 4.41 MIL/uL (4.00-5.20); RED CELL DISTRIBUTION WIDTH 12.9 % (11.5-14.5)
[2021-04-02] MEDS ORDERED: 0.9% SODIUM CHLORIDE 5 ML NEB SOLUTION NEB ONE (21:36)
[2021-04-02 21:44] LABS: CALCIUM, TOTAL 9.8 mg/dL (8.8-10.5); CREATININE 1.14 mg/dL (0.60-1.30); POTASSIUM 3.9 mmol/L (3.5-5.1)
[2021-04-02 21:50] LABS: ALBUMIN 4.3 g/dL (3.4-5.0); BILIRUBIN,TOTAL 0.2 mg/dL (0.1-1.0); TOTAL PROTEIN, SERUM 7.9 g/dL (6.4-8.2)
[2021-04-02] MEDS ORDERED: ACETAMINOPHEN 325 MG TABLET PO PRN (22:00)
[2021-04-02] MEDS ORDERED: ONDANSETRON HCL 4 MG/2 ML VIAL IVP PRN (22:00)
[2021-04-02] MEDS ORDERED: LORazepam 2 MG/ML VIAL IVP ONE (22:00)
[2021-04-02 22:18] LABS: COVID AG,FIA SOURCE NASOPHARYNGEAL
[2021-04-02] MEDS: IPRATROPIUM BROMIDE 0.5 MG/2.5 ML NEB SOLUTION NEB SCH (23:00)
[2021-04-02] MEDS: ALBUTEROL SULFATE 2.5 MG/0.5 ML NEB SOLUTION NEB SCH (23:00)
[2021-04-03 01:18] LABS: APPEARANCE,URINE CLEAR (CLEAR); BILIRUBIN,URINE NEGATIVE (NEGATIVE); GLUCOSE, URINE (UA) NEGATIVE (NEGATIVE); KETONES,URINE NEGATIVE (NEGATIVE); LEUKOCYTE ESTERASE ,URINE TRACE (NEGATIVE); NITRATE,URINE NEGATIVE (NEGATIVE); OCCULT BLOOD,URINE NEGATIVE (NEGATIVE); PROTEIN,URINE TRACE (NEGATIVE); UROBILINOGEN,URINE 0.2 mg/dL (<=1.0)
[2021-04-03 01:35] LABS: RBC,URINE None Seen /HPF (0-2); SQUAMOUS EPITHELIAL CELL,UR Rare /LPF (None Seen)
[2021-04-03 01:36] LABS: BACTERIA,URINE Rare /HPF (None Seen)
[2021-04-03] MEDS: IPRATROPIUM BROMIDE 0.5 MG/2.5 ML NEB SOLUTION NEB SCH ×4 (07:29→23:10)
[2021-04-03] MEDS: ALBUTEROL SULFATE 2.5 MG/0.5 ML NEB SOLUTION NEB SCH ×4 (07:29→23:10)
[2021-04-03 11:25] VITALS: BP 153/84
[2021-04-03] MEDS ORDERED: HYDROCODONE/ACETAMINOPHEN 5-325 MG TABLET PO PRN (13:15)
[2021-04-03] MEDS ORDERED: ZOLPIDEM TARTRATE 5 MG TABLET PO PRN (13:15)
[2021-04-03] MEDS ORDERED: ALBUTEROL SULFATE 2.5 MG/0.5 ML NEB SOLUTION NEB PRN (13:15)
[2021-04-03] MEDS ORDERED: 0.9% SODIUM CHLORIDE 10 ML SYRINGE IVP PRN ×2 (13:15)
[2021-04-03] MEDS ORDERED: ACETAMINOPHEN 325 MG TABLET PO PRN (13:15)
[2021-04-03] MEDS ORDERED: IPRATROPIUM BROMIDE 0.5 MG/2.5 ML NEB SOLUTION NEB PRN (13:15)
[2021-04-03] MEDS ORDERED: ONDANSETRON HCL 4 MG/2 ML VIAL IVP PRN (13:15)
[2021-04-03] MEDS ORDERED: MetFORMIN HCL 500 MG TABLET PO SCH (14:00)
[2021-04-03] MEDS: MethylPREDNISolone SOD SUCC 125 MG/2 ML VIAL IVP SCH ×3 (15:27→23:19)
[2021-04-03] MEDS: SUCRALFATE 1 GM TABLET PO SCH (15:28)
[2021-04-03] MEDS: LISINOPRIL 20 MG TABLET PO SCH (15:28)
[2021-04-03] MEDS: PANTOPRAZOLE SODIUM 40 MG DR TABLET PO SCH (15:28)
[2021-04-03] MEDS: METOPROLOL SUCCINATE 50 MG ER TABLET PO SCH (15:28)
[2021-04-03] MEDS: SitaGLIPtin PHOSPHATE 50 MG TABLET PO SCH (15:28)
[2021-04-03] MEDS: BusPIRone HCL 10 MG TABLET PO SCH ×2 (15:28→20:29)
[2021-04-03] MEDS: MetFORMIN HCL 500 MG TABLET PO SCH (15:28)
[2021-04-03] MEDS: APIXABAN 2.5 MG TABLET PO SCH ×2 (15:29→23:18)
[2021-04-03] MEDS: ROFLUMILAST 500 MCG TABLET PO SCH (15:29)
[2021-04-03 16:29] VITALS: BP 118/55
[2021-04-03] MEDS: ACARBOSE 50 MG TABLET PO SCH (17:51)
[2021-04-03] MEDS: ATORVASTATIN CALCIUM 20 MG TABLET PO SCH (20:29)
[2021-04-03] MEDS: MIRTAZAPINE 30 MG TABLET PO SCH (20:29)
[2021-04-03 20:40] VITALS: BP 158/82
[2021-04-03] MEDS ORDERED: ATORVASTATIN CALCIUM 20 MG TABLET PO SCH (21:00)
[2021-04-04] VITALS (7 sets, daily range): BP systolic 121–171; BP diastolic 76–94
[2021-04-04] MEDS: IPRATROPIUM BROMIDE 0.5 MG/2.5 ML NEB SOLUTION NEB SCH ×6 (04:05→23:32)
[2021-04-04] MEDS: ALBUTEROL SULFATE 2.5 MG/0.5 ML NEB SOLUTION NEB SCH ×6 (04:05→23:32)
[2021-04-04] MEDS: PANTOPRAZOLE SODIUM 40 MG DR TABLET PO SCH (06:10)
[2021-04-04] MEDS: MethylPREDNISolone SOD SUCC 125 MG/2 ML VIAL IVP SCH ×4 (06:11→23:38)
[2021-04-04] MEDS: LINACLOTIDE 145 MCG CAPSULE PO SCH (06:11)
[2021-04-04] MEDS ORDERED: [UNRECOGNIZED DRUG - OTHER] PO SCH (08:00)
[2021-04-04] MEDS: APIXABAN 2.5 MG TABLET PO SCH ×2 (09:02→20:58)
[2021-04-04] MEDS: ACARBOSE 50 MG TABLET PO SCH ×3 (09:02→18:39)
[2021-04-04] MEDS: SitaGLIPtin PHOSPHATE 50 MG TABLET PO SCH (09:02)
[2021-04-04] MEDS: MetFORMIN HCL 500 MG TABLET PO SCH (09:02)
[2021-04-04] MEDS: BusPIRone HCL 10 MG TABLET PO SCH ×2 (09:02→20:58)
[2021-04-04] MEDS: SUCRALFATE 1 GM TABLET PO SCH (09:02)
[2021-04-04] MEDS: METOPROLOL SUCCINATE 50 MG ER TABLET PO SCH (09:03)
[2021-04-04] MEDS: LISINOPRIL 20 MG TABLET PO SCH (09:03)
[2021-04-04] MEDS: ROFLUMILAST 500 MCG TABLET PO SCH (09:04)
[2021-04-04 14:17] LABS: EOSINOPHILS % (AUTO) 0 % (1.0-6.0); HEMATOCRIT 35.7 % (36-46); HEMOGLOBIN 11.9 g/dL (12.0-16.0); LYMPHOCYTES # (AUTO) 0.6 K/uL (1.0-4.8); LYMPHOCYTES % (AUTO) 4.3 % (22.0-44.0); MEAN CORPUSCULAR HEMOGLOBIN 28.6 pg (26.0-34.0); MEAN CORPUSCULAR HGB CONC 33.2 G/dL (31.0-37.0); MEAN CORPUSCULAR VOLUME 86 fL (80-100); MONOCYTES # (AUTO) 0.2 K/uL (0.1-1.0); MONOCYTES % (AUTO) 1.3 % (2.0-9.0); NEUTROPHILS # (AUTO) 13.9 K/uL (1.8-7.7); PLATELET COUNT (AUTO) 144 K/uL (150-450); RED BLOOD CELL COUNT(AUTO) 4.16 MIL/uL (4.00-5.20); RED CELL DISTRIBUTION WIDTH 13.1 % (11.5-14.5)
[2021-04-04 14:20] LABS: NEUTROPHILS % (AUTO) 94.4 % (40.0-70.0)
[2021-04-04 14:34] LABS: INR 1.1 (0.9-1.1); PROTHROMBIN TIME 11.2 SEC (9.4-11.6)
[2021-04-04 14:47] LABS: HEMOGLOBIN A1C 6.3 % (3.8-5.6)
[2021-04-04 14:54] LABS: CHOL/HDL RATIO 2.3 (3.9-5.7); THYROID STIMULATING HORMONE 0.48 uIU/mL (0.36-3.74)
[2021-04-04] MEDS ORDERED: LORazepam 0.5 MG TABLET PO PRN (16:00)
[2021-04-04] MEDS: AmLODIPine BESYLATE 5 MG TABLET PO SCH (20:58)
[2021-04-04] MEDS: MIRTAZAPINE 30 MG TABLET PO SCH (20:58)
[2021-04-04] MEDS: ALPRAZolam 0.5 MG TABLET PO PRN (20:58)
[2021-04-04] MEDS: ATORVASTATIN CALCIUM 20 MG TABLET PO SCH (20:58)
[2021-04-05 00:35] VITALS: BP 146/77
[2021-04-05] MEDS: IPRATROPIUM BROMIDE 0.5 MG/2.5 ML NEB SOLUTION NEB SCH ×6 (02:59→23:39)
[2021-04-05] MEDS: ALBUTEROL SULFATE 2.5 MG/0.5 ML NEB SOLUTION NEB SCH ×6 (03:00→23:39)
[2021-04-05 05:17] VITALS: BP 137/75
[2021-04-05] MEDS: MethylPREDNISolone SOD SUCC 125 MG/2 ML VIAL IVP SCH ×4 (06:34→23:29)
[2021-04-05] MEDS: LINACLOTIDE 145 MCG CAPSULE PO SCH (06:34)
[2021-04-05] MEDS: PANTOPRAZOLE SODIUM 40 MG DR TABLET PO SCH (06:34)
[2021-04-05 07:11] VITALS: BP 140/87
[2021-04-05] MEDS: ALPRAZolam 0.5 MG TABLET PO PRN (08:37)
[2021-04-05] MEDS: METOPROLOL SUCCINATE 50 MG ER TABLET PO SCH (08:37)
[2021-04-05] MEDS: BusPIRone HCL 10 MG TABLET PO SCH ×2 (08:37→20:39)
[2021-04-05] MEDS: ACARBOSE 50 MG TABLET PO SCH ×3 (08:37→20:38)
[2021-04-05] MEDS: ROFLUMILAST 500 MCG TABLET PO SCH (08:38)
[2021-04-05] MEDS: APIXABAN 2.5 MG TABLET PO SCH ×2 (08:38→20:39)
[2021-04-05] MEDS: MetFORMIN HCL 500 MG TABLET PO SCH (08:38)
[2021-04-05] MEDS: LISINOPRIL 20 MG TABLET PO SCH (08:38)
[2021-04-05] MEDS: SUCRALFATE 1 GM TABLET PO SCH (08:38)
[2021-04-05] MEDS: SitaGLIPtin PHOSPHATE 50 MG TABLET PO SCH (08:39)
[2021-04-05 08:45] LABS: EOSINOPHILS % (AUTO) 0 % (1.0-6.0); HEMATOCRIT 36.4 % (36-46); HEMOGLOBIN 12.1 g/dL (12.0-16.0); LYMPHOCYTES # (AUTO) 0.6 K/uL (1.0-4.8); LYMPHOCYTES % (AUTO) 4.4 % (22.0-44.0); MEAN CORPUSCULAR HEMOGLOBIN 28.6 pg (26.0-34.0); MEAN CORPUSCULAR HGB CONC 33.4 G/dL (31.0-37.0); MEAN CORPUSCULAR VOLUME 86 fL (80-100); MONOCYTES # (AUTO) 0.3 K/uL (0.1-1.0); NEUTROPHILS # (AUTO) 11.9 K/uL (1.8-7.7); PLATELET COUNT (AUTO) 136 K/uL (150-450); RED BLOOD CELL COUNT(AUTO) 4.25 MIL/uL (4.00-5.20); RED CELL DISTRIBUTION WIDTH 12.9 % (11.5-14.5)
[2021-04-05 08:51] LABS: NEUTROPHILS % (AUTO) 93.6 % (40.0-70.0)
[2021-04-05 09:12] LABS: ALBUMIN 3.9 g/dL (3.4-5.0); BILIRUBIN,TOTAL 0.2 mg/dL (0.1-1.0); CALCIUM, TOTAL 9.6 mg/dL (8.8-10.5); CREATININE 1.29 mg/dL (0.60-1.30); POTASSIUM 4.3 mmol/L (3.5-5.1); TOTAL PROTEIN, SERUM 7.2 g/dL (6.4-8.2)
[2021-04-05 11:47] VITALS: BP 142/86
[2021-04-05] MEDS ORDERED: DEXTROSE 50%-WATER 25 GM/50 ML SYRINGE IVP PRN (17:00)
[2021-04-05 17:08] VITALS: BP 160/98
[2021-04-05] MEDS: INSULIN LISPRO 100 UNITS/ML SQ PRN ×2 (17:41→20:40)
[2021-04-05 19:34] VITALS: BP 156/77
[2021-04-05] MEDS: ATORVASTATIN CALCIUM 20 MG TABLET PO SCH (20:39)
[2021-04-05] MEDS: AmLODIPine BESYLATE 5 MG TABLET PO SCH (20:39)
[2021-04-05] MEDS: MIRTAZAPINE 30 MG TABLET PO SCH (20:46)
[2021-04-05 23:36] LABS: GLUCOMETER DEV NAME(LOC) 5S.1; GLUCOSE,POINT OF CARE 202 MG/DL (70-110)
[2021-04-05 23:36] LABS: GLUCOMETER DEV NAME(LOC) 5S.1; GLUCOSE,POINT OF CARE 195 MG/DL (70-110)
[2021-04-06 00:48] VITALS: BP 136/63
[2021-04-06] MEDS: IPRATROPIUM BROMIDE 0.5 MG/2.5 ML NEB SOLUTION NEB SCH ×4 (03:26→15:38)
[2021-04-06] MEDS: ALBUTEROL SULFATE 2.5 MG/0.5 ML NEB SOLUTION NEB SCH ×4 (03:26→15:38)
[2021-04-06 03:53] VITALS: BP 153/79
[2021-04-06] MEDS: LINACLOTIDE 145 MCG CAPSULE PO SCH (05:34)
[2021-04-06] MEDS: MethylPREDNISolone SOD SUCC 125 MG/2 ML VIAL IVP SCH ×3 (05:34→17:18)
[2021-04-06] MEDS: PANTOPRAZOLE SODIUM 40 MG DR TABLET PO SCH (05:34)
[2021-04-06] MEDS: INSULIN LISPRO 100 UNITS/ML SQ PRN ×2 (05:35→11:59)
[2021-04-06 08:01] VITALS: BP 149/87
[2021-04-06 08:29] LABS: APPEARANCE,URINE CLOUDY (CLEAR); BILIRUBIN,URINE NEGATIVE (NEGATIVE); GLUCOSE, URINE (UA) NEGATIVE (NEGATIVE); KETONES,URINE NEGATIVE (NEGATIVE); LEUKOCYTE ESTERASE ,URINE NEGATIVE (NEGATIVE); NITRATE,URINE NEGATIVE (NEGATIVE); OCCULT BLOOD,URINE NEGATIVE (NEGATIVE); PROTEIN,URINE POS 1+ (NEGATIVE); UROBILINOGEN,URINE 0.2 mg/dL (<=1.0)
[2021-04-06 08:49] LABS: BACTERIA,URINE Moderate /HPF (None Seen); URIC ACID CRYSTALS,URINE Few /LPF (None Seen)
[2021-04-06 08:50] LABS: RBC,URINE 0-2 /HPF (0-2); WBC,URINE 0-2 /HPF (0-5)
[2021-04-06 08:52] LABS: SQUAMOUS EPITHELIAL CELL,UR Few /LPF (None Seen)
[2021-04-06] MEDS: SitaGLIPtin PHOSPHATE 50 MG TABLET PO SCH (09:00)
[2021-04-06] MEDS: ROFLUMILAST 500 MCG TABLET PO SCH (09:00)
[2021-04-06] MEDS: MetFORMIN HCL 500 MG TABLET PO SCH (09:01)
[2021-04-06] MEDS: APIXABAN 2.5 MG TABLET PO SCH (09:01)
[2021-04-06] MEDS: BusPIRone HCL 10 MG TABLET PO SCH (09:01)
[2021-04-06] MEDS: SUCRALFATE 1 GM TABLET PO SCH (09:01)
[2021-04-06] MEDS: LISINOPRIL 20 MG TABLET PO SCH (09:01)
[2021-04-06] MEDS: ACARBOSE 50 MG TABLET PO SCH ×2 (09:01→11:57)
[2021-04-06] MEDS: METOPROLOL SUCCINATE 50 MG ER TABLET PO SCH (09:01)
[2021-04-06 11:19] VITALS: BP 133/72
[2021-04-06 12:27] LABS: GLUCOMETER DEV NAME(LOC) 5N.3; GLUCOSE,POINT OF CARE 192 MG/DL (70-110)
[2021-04-06 16:00] VITALS: BP 143/85
[2021-04-06 17:52] LABS: GLUCOMETER DEV NAME(LOC) 5N.1C; GLUCOSE,POINT OF CARE 238 MG/DL (70-110)
== END 2021-04-06 17:50 | disposition home or self-care (01) | DRG 191 ==
LOC: EMS 21:19 → 5S 04-03 06:00
PROVIDERS: ADMIT Internal Medicine; ATTEND Internal Medicine
DX: J44.1 Chronic obstructive pulmonary disease with (acute) exacerbation (principal); J96.11 Chronic respiratory failure with hypoxia; I13.0 Hypertensive heart and chronic kidney disease with heart failure and stage 1 through stage 4 chronic kidney disease, or unspecified chronic kidney disease; I50.9 Heart failure, unspecified; I48.91 Unspecified atrial fibrillation; I25.10 Atherosclerotic heart disease of native coronary artery without angina pectoris; E78.5 Hyperlipidemia, unspecified; Z20.822 Contact with and (suspected) exposure to COVID-19; F17.210 Nicotine dependence, cigarettes, uncomplicated; I35.0 Nonrheumatic aortic (valve) stenosis; N18.30 Chronic kidney disease, stage 3 unspecified; E11.22 Type 2 diabetes mellitus with diabetic chronic kidney disease; F41.9 Anxiety disorder, unspecified; E78.00 Pure hypercholesterolemia, unspecified; Z99.81 Dependence on supplemental oxygen; Z79.01 Long term (current) use of anticoagulants; Z95.1 Presence of aortocoronary bypass graft; Z85.118 Personal history of other malignant neoplasm of bronchus and lung
CPT/HCPCS: 71045; 80053; 80061; 81001; 82962; 83036; 83880; 84443; 84484; 85025; 85610; 85730; 87086; 93005; 94640; 94644; 99291; G0378; J2060; J2405; J2930; Q9967; 36415-L1; 36415-TC; J7611; J7613; U0003

== ENCOUNTER 2021-04-28 19:45 | Emergency (ER) | payer MEDICARE, OTHER ==
[~2021-04-28] VITALS: Ht 162.6 cm; Wt 56.2 kg
[2021-04-28] MEDS ORDERED: FAMOTIDINE 10 MG/ML 2 ML VIAL IVP ONE (20:15)
[2021-04-28] MEDS ORDERED: ONDANSETRON HCL 4 MG/2 ML VIAL IVP ONE (20:15)
[2021-04-28 20:48] LABS: COVID AG,FIA SOURCE NASOPHARYNGEAL
[2021-04-28 20:50] LABS: BASOPHILS % (AUTO) 0.4 % (0.0-2.0); EOSINOPHILS % (AUTO) 2.3 % (1.0-6.0); HEMATOCRIT 34.3 % (36-46); HEMOGLOBIN 11.5 g/dL (12.0-16.0); LYMPHOCYTES # (AUTO) 1.1 K/uL (1.0-4.8); LYMPHOCYTES % (AUTO) 16.5 % (22.0-44.0); MEAN CORPUSCULAR HEMOGLOBIN 28.5 pg (26.0-34.0); MEAN CORPUSCULAR HGB CONC 33.5 G/dL (31.0-37.0); MEAN CORPUSCULAR VOLUME 85 fL (80-100); MONOCYTES # (AUTO) 0.6 K/uL (0.1-1.0); MONOCYTES % (AUTO) 8.5 % (2.0-9.0); NEUTROPHILS # (AUTO) 4.9 K/uL (1.8-7.7); NEUTROPHILS % (AUTO) 72.3 % (40.0-70.0); PLATELET COUNT (AUTO) 150 K/uL (150-450); RED BLOOD CELL COUNT(AUTO) 4.03 MIL/uL (4.00-5.20); RED CELL DISTRIBUTION WIDTH 13.7 % (11.5-14.5)
[2021-04-28 21:01] LABS: CALCIUM, TOTAL 9.2 mg/dL (8.8-10.5); CREATININE 0.94 mg/dL (0.60-1.30); POTASSIUM 3.9 mmol/L (3.5-5.1)
[2021-04-28 21:07] LABS: ALBUMIN 3.8 g/dL (3.4-5.0); BILIRUBIN,TOTAL 0.2 mg/dL (0.1-1.0); MAGNESIUM 1.5 mg/dL (1.80-2.40); PHOSPHORUS 3.3 mg/dL (2.5-4.9); TOTAL PROTEIN, SERUM 7.2 g/dL (6.4-8.2)
[2021-04-28 21:09] LABS: PROTHROMBIN TIME 10.9 SEC (9.4-11.6)
[2021-04-28] MEDS ORDERED: SODIUM CHLORIDE 0.9% 100 ML ONE (21:25)
[2021-04-28] MEDS ORDERED: IOHEXOL 350 MG/ML 100 ML VIAL ONE (21:25)
[2021-04-28 22:40] LABS: APPEARANCE,URINE CLEAR (CLEAR); BILIRUBIN,URINE NEGATIVE (NEGATIVE); GLUCOSE, URINE (UA) NEGATIVE (NEGATIVE); KETONES,URINE NEGATIVE (NEGATIVE); LEUKOCYTE ESTERASE ,URINE NEGATIVE (NEGATIVE); NITRATE,URINE NEGATIVE (NEGATIVE); OCCULT BLOOD,URINE NEGATIVE (NEGATIVE); PROTEIN,URINE POS 1+ (NEGATIVE); UROBILINOGEN,URINE 0.2 mg/dL (<=1.0)
[2021-04-28 23:10] VITALS: BP 163/89
== END 2021-04-29 02:21 | disposition home or self-care (01) ==
LOC: EMS 19:48
DX: I11.9 Hypertensive heart disease without heart failure (principal); R10.33 Periumbilical pain; I48.91 Unspecified atrial fibrillation; J45.909 Unspecified asthma, uncomplicated; E11.9 Type 2 diabetes mellitus without complications; K21.9 Gastro-esophageal reflux disease without esophagitis; E78.00 Pure hypercholesterolemia, unspecified; Z20.822 Contact with and (suspected) exposure to COVID-19; Z79.899 Other long term (current) drug therapy
CPT/HCPCS: 36415; 71045; 74177; 80053; 81003; 82550; 83690; 83735; 83880; 84100; 84484; 85025; 85610; 85730; 87426; 93005; 96374; 96375; 99285; J2405; J3490; J7050; Q9967

== ENCOUNTER 2021-06-01 12:19 | Emergency (ER) | payer MEDICARE, OTHER ==
[~2021-06-01] VITALS: Ht 160 cm; Wt 56.8 kg
[~2021-06-01 12:19] MED LIST changes: +ALPR-707 PO; -ALPR0.5T8 PO
[2021-06-01 13:42] LABS: BASOPHILS % (AUTO) 0.5 % (0.0-2.0); EOSINOPHILS % (AUTO) 0.3 % (1.0-6.0); HEMATOCRIT 34.8 % (36-46); HEMOGLOBIN 11.4 g/dL (12.0-16.0); LYMPHOCYTES # (AUTO) 0.5 K/uL (1.0-4.8); LYMPHOCYTES % (AUTO) 3.8 % (22.0-44.0); MEAN CORPUSCULAR HEMOGLOBIN 27.8 pg (26.0-34.0); MEAN CORPUSCULAR HGB CONC 32.8 G/dL (31.0-37.0); MEAN CORPUSCULAR VOLUME 85 fL (80-100); MONOCYTES # (AUTO) 1.1 K/uL (0.1-1.0); MONOCYTES % (AUTO) 7.7 % (2.0-9.0); NEUTROPHILS # (AUTO) 12.7 K/uL (1.8-7.7); PLATELET COUNT (AUTO) 164 K/uL (150-450); RED BLOOD CELL COUNT(AUTO) 4.11 MIL/uL (4.00-5.20); RED CELL DISTRIBUTION WIDTH 13.9 % (11.5-14.5)
[2021-06-01 13:43] LABS: NEUTROPHILS % (AUTO) 87.7 % (40.0-70.0)
[2021-06-01 14:00] LABS: CALCIUM, TOTAL 8.8 mg/dL (8.8-10.5); CREATININE 1.61 mg/dL (0.60-1.30); POTASSIUM 3.9 mmol/L (3.5-5.1)
[2021-06-01 14:04] LABS: BILIRUBIN,TOTAL 0.2 mg/dL (0.1-1.0); TOTAL PROTEIN, SERUM 6.9 g/dL (6.4-8.2)
[2021-06-01 15:49] LABS: APPEARANCE,URINE CLEAR (CLEAR); BILIRUBIN,URINE NEGATIVE (NEGATIVE); GLUCOSE, URINE (UA) NEGATIVE (NEGATIVE); KETONES,URINE NEGATIVE (NEGATIVE); LEUKOCYTE ESTERASE ,URINE NEGATIVE (NEGATIVE); NITRATE,URINE NEGATIVE (NEGATIVE); OCCULT BLOOD,URINE NEGATIVE (NEGATIVE); PH,URINE 5.5 (5.0-8.0); PROTEIN,URINE TRACE mg/dL (NEGATIVE); SPECIFIC GRAVITIY, URINE 1.014 (1.003-1.030); UROBILINOGEN,URINE <=1.0 mg/dL (<=1.0)
[2021-06-01 15:58] LABS: BACTERIA,URINE None Seen /HPF (None Seen); RBC,URINE None Seen /HPF (0-2); SQUAMOUS EPITHELIAL CELL,UR Few /LPF (None Seen); WBC,URINE 0-2 /HPF (0-5)
[2021-06-01] MEDS ORDERED: SODIUM CHLORIDE 0.9% 1,000 ML IV ONE (16:45)
[2021-06-01] MEDS ORDERED: ACETAMINOPHEN 325 MG TABLET PO ONE (18:30)
[2021-06-01 21:26] VITALS: BP 128/73
== END 2021-06-01 22:01 | disposition home or self-care (01) ==
LOC: EMS 12:48
DX: K59.00 Constipation, unspecified (principal); I10 Essential (primary) hypertension; E11.9 Type 2 diabetes mellitus without complications; E78.00 Pure hypercholesterolemia, unspecified; I48.91 Unspecified atrial fibrillation; K21.9 Gastro-esophageal reflux disease without esophagitis; Z79.899 Other long term (current) drug therapy
CPT/HCPCS: 74022; 74176; 76705; 80053; 81001; 82150; 83605; 83690; 84484; 84702; 85025; 93005; 96360; 96361; 99285; 36415-L1; 36415-TC